=== PATIENT | female | born 1965 | race Caucasian/White ===

== ENCOUNTER 2022-01-28 08:59 | Emergency (ER) | payer BC ==
[2022-01-28 11:25] LABS: Absolute Lymphocytes (CBC) 1.2 K/uL (0.7-4.9); Hematocrit 37.6 % (36.0-45.0); Lymphocytes % 14.6 % (15.3-44.8); RBC Red Blood Cell Count 4.27 M/uL (3.86-4.86)
[2022-01-28 11:30] LABS: Protime INR 1.04
[2022-01-28 11:44] LABS: Albumin 3.3 g/dL (3.4-5.0); Bilirubin Direct 0.2 mg/dL (0-0.2); Bilirubin Total 0.7 mg/dL (0.2-1.0); Magnesium 1.9 mg/dL (1.8-2.4); Potassium 3.3 mmol/L (3.5-5.1); Protein, Total 7.4 g/dL (6.4-8.2); Troponin High Sensitivity 6.7 pg/mL (<58.9)
[2022-01-28] MEDS ORDERED: HYDRALAZINE HCL 10 MG TABLET ONE (12:38)
[2022-01-28] MEDS ORDERED: HYDRALAZINE HCL 20 MG/ML VIAL ONE (12:40)
--- NOTE | 2022-01-28 14:08 | EDPHYS ---
Physician Documentation [facility] Name: Anjali Jones Age: 56 yrs Sex: Female : 1965 Arrival Date: 01/28/2022 Time: 09:01 Bed 13 Private MD: ED Physician Chago Griffin HPI: 01/28 09:59 This 56 yrs old Female presents to ER via Ambulatory with complaints of Dizziness, jmm Headache, High Blood Pressure. 09:59 Onset: The symptoms/episode began/occurred gradually. This is a 56 year old female with jmm a history of htn, sleep apnea, ckd that presents to the ED with complaints of headache, weakness which she attributes to elevated blood pressure. Patient took home hydralazine with no relief. Denies chest pain, denies shortness of breath, denies abdominal pain, denies vomiting. . Historical: - Allergies: 09:49 No Known Allergies; jl7 - PMHx: 09:49 Hypertensive disorder; Sleep apnea; Stage 3 kidney disease; jl7 - PSHx: 09:49 Total abdominal hysterectomy; Cholecystectomy; shoulder; jl7 - Immunization history:: Client reports receiving the 2nd dose of the Covid vaccine. - Social history:: Smoking status: Patient denies any tobacco usage or history of. ROS: 09:59 Cardiovascular: Negative for chest pain, palpitations, and edema, Respiratory: Negative jmm for shortness of breath, cough, wheezing, and pleuritic chest pain. 09:59 Constitutional: Positive for fatigue. 09:59 Neuro: Positive for headache. 09:59 All other systems are negative. Exam: 09:59 Constitutional: This is a well developed, well nourished patient who is awake, alert, jmm and in no acute distress. Head/Face: atraumatic. Eyes: EOMI, no conjunctival erythema appreciated ENT: Moist Mucus Membranes Neck: Trachea midline, Supple Chest/axilla: Normal chest wall appearance and motion. Cardiovascular: Regular rate and rhythm. No edema appreciated Respiratory: Normal respirations, no respiratory distress appreciated Abdomen/GI: Non distended Back: Normal ROM Skin: General appearance color normal MS/ Extremity: Moves all extremities, no obvious deformities appreciated, no edema noted to the lower extremities Neuro: Awake and alert Psych: Behavior is normal, Mood is normal, Patient is cooperative and pleasant Vital Signs: 09:45 BP 176 / 92; Pulse 86; Resp 15; Temp 98; Pulse Ox 96% ; Weight 141.52 kg; Height 5 ft. jl7 7 in. (170.18 cm); Pain 4/10; 12:52 BP 143 / 78; Pulse 70; Resp 13; Pulse Ox 99% on R/A; eh3 14:01 BP 139 / 78; Pulse 65; Resp 15; Pulse Ox 96% on R/A; eh3 14:41 BP 152 / 89; Pulse 72; Resp 16; Pulse Ox 99% on R/A; Pain 3/10; eh3 09:45 Body Mass Index 48.87 (141.52 kg, 170.18 cm) jl7 MDM: 10:00 Patient medically screened. osbaldo 14:04 Data reviewed: vital signs, nurses notes. Counseling: I had a detailed discussion with adrian the patient and/or guardian regarding: the historical points, exam findings, and any diagnostic results supporting the discharge/admit diagnosis, lab results, the need for outpatient follow up, to return to the emergency department if symptoms worsen or persist or if there are any questions or concerns that arise at home. ED course: Patient states feeling much better. Advised to follow up with pcp and otherwise given strict return precautions. Patient understood and agrees with the plan of care. . 01/28 09:59 Order name: Basic Metabolic Panel; Complete Time: 12:21 [facility] 01/28 09:59 Order name: CBC with Diff; Complete Time: 11:31 [facility] 01/28 09:59 Order name: LFT's; Complete Time: 12:21 [facility] 01/28 09:59 Order name: Magnesium; Complete Time: 12:21 [facility] 01/28 09:59 Order name: NT PRO-BNP; Complete Time: 12:21 [facility] 01/28 09:59 Order name: PT-INR; Complete Time: 11:31 [facility] 01/28 09:59 Order name: Troponin HS; Complete Time: 12:21 [facility] 01/28 09:59 Order name: EKG; Complete Time: 10:00 [facility] 01/28 09:59 Order name: Cardiac monitoring; Complete Time: 12:54 [facility] 01/28 09:59 Order name: EKG - Nurse/Tech; Complete Time: 12:54 [facility] 01/28 09:59 Order name: IV Saline Lock; Complete Time: 11:40 [facility] 01/28 09:59 Order name: Labs collected and sent; Complete Time: 11:40 [facility] 01/28 09:59 Order name: O2 Per Protocol; Complete Time: 12:28 [facility] 01/28 09:59 Order name: O2 Sat Monitoring; Complete Time: 12:54 [facility] Administered Medications: 12:50 Drug: hydrALAZINE 5 mg Route: IVP; Site: left antecubital; eh3 14:41 Follow up: Response: No adverse reaction eh3 14:11 CANCELLED (renal diseasee): Ketorolac 30 mg IVP once [facility] 14:39 Drug: NS 0.9% 500 ml Route: IV; Rate: bolus; Site: left antecubital; eh3 15:15 Follow up: Response: No adverse reaction; IV Status: Order to discontinue infusion; IV eh3 Intake: 250ml 14:39 Drug: Reglan (metoCLOPramide) 20 mg Route: IVP; Site: left antecubital; eh3 15:14 Follow up: Response: RASS: Agitated (+2) eh3 14:39 Drug: diphenhydrAMINE 12.5 mg Route: IVP; Site: left antecubital; eh3 15:15 Follow up: Response: Marked relief of symptoms eh3 14:39 Drug: Decadron - Dexamethasone 10 mg Route: IVP; Site: left antecubital; eh3 15:16 Follow up: Response: No adverse reaction; Marked relief of symptoms eh3 15:14 Drug: diphenhydrAMINE 12.5 mg Route: IVP; Site: left antecubital; eh3 15:17 Follow up: Response: No adverse reaction; Marked relief of symptoms eh3 Disposition: 22:37 Co-signature as Attending Physician, Chago BAY was immediately available on-site ms3 in the Emergency Department for consultation in the care of the patient.. Disposition Summary: 01/28/22 14:07 Discharge Ordered Location: Home [facility] Condition: Stable [facility] Diagnosis - Elevated Blood Pressure [facility] Followup: jmm - With: Private Physician - When: 2 - 3 days - Reason: Recheck today's complaints, Continuance of care, Re-evaluation by your physician Discharge Instructions: - Discharge Summary Sheet [facility] - Hypertension, Adult [facility] Forms: - Medication Reconciliation Form adrian - Thank You Letter adrian - Antibiotic Education adrian - Prescription Opioid Use adrian Signatures: Dispatcher [employer] Harpal Borja PA PA jmm Leal, Jahala, RN RN jl7 Chago Griffin DO DO ms3 Bisi Munoz 3 Corrections: (The following items were deleted from the chart) 14:11 14:11 Ketorolac 30 mg IVP once ordered. adrian campbell
--- NOTE | 2022-01-28 14:08 | ER ---
Nurse's Notes [facility] Name: Anjali Jones Age: 56 yrs Sex: Female : 1965 Arrival Date: 01/28/2022 Time: 09:01 Bed 13 Private MD: Diagnosis: Elevated Blood Pressure Presentation: 01/28 09:45 Chief complaint: Patient states: High BP 184/104 this morning, mild pressure headache jl7 and mild dizziness since yesterday. Coronavirus screen: At this time, the client does not indicate any symptoms associated with coronavirus-19. Ebola Screen: No symptoms or risks identified at this time. Initial Sepsis Screen: Does the patient meet any 2 criteria? No. Patient's initial sepsis screen is negative. Does the patient have a suspected source of infection? No. Patient's initial sepsis screen is negative. Risk Assessment: Do you want to hurt yourself or someone else? Patient reports no desire to harm self or others. Onset of symptoms was January 27, 2022. Care prior to arrival: None. 09:45 Method Of Arrival: Ambulatory [facility] 09:45 Acuity: TODD 3 jl7 Triage Assessment: 09:49 Headache History: The patient has had previous headaches and this one is similar to jl7 previous episodes. General: Appears in no apparent distress. uncomfortable, Behavior is calm, cooperative, appropriate for age. Pain: Complains of pain in [place] Pain currently is 4 out of 10 on a pain scale. Pain began 1 day ago. Also complains of no other associated symptoms. Neuro: Level of Consciousness is awake, alert, obeys commands, Oriented to person, place, time, situation. Historical: - Allergies: 09:49 No Known Allergies; jl7 - PMHx: 09:49 Hypertensive disorder; Sleep apnea; Stage 3 kidney disease; jl7 - PSHx: 09:49 Total abdominal hysterectomy; Cholecystectomy; shoulder; jl7 - Immunization history:: Client reports receiving the 2nd dose of the Covid vaccine. - Social history:: Smoking status: Patient denies any tobacco usage or history of. Screenin:53 Abuse screen: Denies threats or abuse. Denies injuries from another. Nutritional eh3 screening: No deficits noted. Tuberculosis screening: No symptoms or risk factors identified. Fall Risk None identified. Assessment: 12:53 Reassessment: No changes from previously documented assessment. Pain: Complains of pain eh3 in forehead, right restorationist and left restorationist. Vital Signs: 09:45 BP 176 / 92; Pulse 86; Resp 15; Temp 98; Pulse Ox 96% ; Weight 141.52 kg; Height 5 ft. jl7 7 in. (170.18 cm); Pain 4/10; 12:52 BP 143 / 78; Pulse 70; Resp 13; Pulse Ox 99% on R/A; eh3 14:01 BP 139 / 78; Pulse 65; Resp 15; Pulse Ox 96% on R/A; eh3 14:41 BP 152 / 89; Pulse 72; Resp 16; Pulse Ox 99% on R/A; Pain 3/10; eh3 09:45 Body Mass Index 48.87 (141.52 kg, 170.18 cm) 7 ED Course: 09:01 Patient arrived in ED. mr 09:20 Harpal Dorsey PA is PHCP. [facility] 09:20 Chago Griffin DO is Attending Physician. [facility] 09:49 Triage completed. [facility] 09:49 Arm band placed on right wrist. jl7 11:39 Inserted saline lock: 20 gauge in left antecubital area, using aseptic technique. Blood zm collected. 11:40 Basic Metabolic Panel Sent. zm 11:41 LFT's Sent. zm 11:41 Magnesium Sent. zm 11:41 NT PRO-BNP Sent. zm 11:41 Troponin HS Sent. zm 12:26 Catrina Pandey, RN is Primary Nurse. ld1 12:53 Patient has correct armband on for positive identification. Bed in low position. Call eh3 light in reach. Side rails up X2. 13:00 Door closed. Noise minimized. Lights dimmed. Warm blanket given. Head of bed lowered. eh3 14:01 Primary Nurse role handed off by Catrina Pandey, RN eh3 14:01 Bisi Munoz is Primary Nurse. eh3 14:41 No provider procedures requiring assistance completed. eh3 15:18 IV discontinued, intact, bleeding controlled, No redness/swelling at site. Pressure eh3 dressing applied. Administered Medications: 12:50 Drug: hydrALAZINE 5 mg Route: IVP; Site: left antecubital; eh3 14:41 Follow up: Response: No adverse reaction eh3 14:11 CANCELLED (renal diseasee): Ketorolac 30 mg IVP once [facility] 14:39 Drug: NS 0.9% 500 ml Route: IV; Rate: bolus; Site: left antecubital; eh3 15:15 Follow up: Response: No adverse reaction; IV Status: Order to discontinue infusion; IV eh3 Intake: 250ml 14:39 Drug: Reglan (metoCLOPramide) 20 mg Route: IVP; Site: left antecubital; eh3 15:14 Follow up: Response: RASS: Agitated (+2) eh3 14:39 Drug: diphenhydrAMINE 12.5 mg Route: IVP; Site: left antecubital; eh3 15:15 Follow up: Response: Marked relief of symptoms 3 14:39 Drug: Decadron - Dexamethasone 10 mg Route: IVP; Site: left antecubital; eh3 15:16 Follow up: Response: No adverse reaction; Marked relief of symptoms eh3 15:14 Drug: diphenhydrAMINE 12.5 mg Route: IVP; Site: left antecubital; eh3 15:17 Follow up: Response: No adverse reaction; Marked relief of symptoms eh3 Medication: 14:41 VIS not applicable for this client. eh3 Intake: 15:15 IV: 250ml; Total: 250ml. 3 Outcome: 14:07 Discharge ordered by . [facility] 15:17 Discharged to home ambulatory, with significant other. 3 15:17 Condition: stable 15:17 Discharge instructions given to patient, Instructed on discharge instructions, follow up and referral plans. Demonstrated understanding of instructions, follow-up care. 15:26 Patient left the ED. 3 Signatures: Harpal Dorsey PA PA [facility] Sukumar Theresa mr LopesBarron RN RN jl7 Catrina Pandey RN RN ld1 Bisi Munoz 3 Elaine Shook
[2022-01-28] MEDS ORDERED: NA CHLORIDE 0.9% 500 ML ONE (14:23)
[2022-01-28] MEDS ORDERED: dexAMETHasone 10 MG/ML VIAL ONE (14:23)
[2022-01-28] MEDS ORDERED: METOCLOPRAMIDE 10 MG/2mL INJ ONE (14:23)
[2022-01-28] MEDS ORDERED: DIPHENHYDRAMINE 12.5MG/5ML LIQ ONE (14:24)
[2022-01-28] MEDS ORDERED: DIPHENHYDRAMINE 50 MG/ML VIAL ONE ×2 (14:26→15:13)
[2022-01-28 16:01] VITALS: TEMP 98
[2022-01-28 16:11] VITALS: BP 152/89; O2SAT 99
--- NOTE | 2022-01-29 07:23 | EKG ---
Test Date: 2022-01-28 Test Time: 12:41:51 Clam Dredger: SALTY MEASUREMENT RESULTS: Intervals: Rate: 61 MD: 176 QRSD: 84 QT: 422 QTc: 424 [place]: P: 63 MD: 176 QRS: 11 T: 54 INTERPRETIVE STATEMENTS: Normal sinus rhythm Normal ECG No previous ECG available for comparison Electronically Signed On 01-29-22 07:20:40 CDT by Naif Davies
--- NOTE | 2022-01-29 07:23 | EKG ---
Test Date: 2022-01-28 Test Time: 12:42:18 Plastic Tubing Insulation Supervisor: SALTY MEASUREMENT RESULTS: Intervals: Rate: 69 AR: 184 QRSD: 86 QT: 426 QTc: 456 [place]: P: 61 AR: 184 QRS: 10 T: 51 INTERPRETIVE STATEMENTS: Normal sinus rhythm Normal ECG Compared to ECG 01/28/2022 12:41:51 No significant changes Electronically Signed On 01-29-22 07:20:39 CDT by Naif Davies
--- OUTSIDE RECORDS SUMMARY | 2022-01-30 14:09 | XMS REPORT | Continuity of Care Document ---
:1965 Author Organization [facility] t Address [address] [place] [address] [address] [place] [address] Care Team Providers Name Role Phone SITA Attending Clinician Unavailable TRENT BUCKNER Attending Clinician Unavailable KWESI Attending Clinician Unavailable MD NARDA OROSCO Attending Clinician Unavailable Justine Attending Clinician Unavailable DR ANGELA Attending Clinician Unavailable KWESI Admitting Clinician Unavailable MD NARDA OROSCO Admitting Clinician Unavailable Justine Admitting Clinician Unavailable DR ANGELA Admitting Clinician Unavailable Payers Payer Name Policy Type Policy Number Effective Date Expiration Date S ource BCBS PPO POS EPO [id number] 2017 00:00:00 [id number] 2017 00:00[place]00 [place] Problems This patient has no known problems. Allergies, Adverse Reactions, Alerts Allergy Allergy Status Severity Reaction(s) Onset Inactive Treating Comm ents Source Name Type Date Date Clinician NO KNOWN Allergy Active [facility] ALLERGIE S Medications This patient has no known medications. Vital Signs Vital Name Observation Time Observation Value Comments Source WEIGHT 2021-09-10 09:00:00 137.893 kg WEIGHT 2021-09-10 09:00:00 137.893 kg WEIGHT 2021-06-17 08:41:00 134.31 kg WEIGHT 2021-06-17 08:41:00 134.31 kg Procedures This patient has no known procedures. Encounters Start End Encounter Admission Attending Care Care Encounter Source Date/Time Date/Time Type Type Clinicians Facility Department ID 2021-11-04 2021-11-04 Outpatient GILBERTO BUCKNER [facility] [id number] [place] 00:00:00 00:00:00 [place] [address] 2021-09-11 2021-09-12 Outpatient EL [facility] [id number] [facility] 11:42:22 08:27:48 2021-09-11 2021-09-11 Outpatient [facility] [id number] [facility] 00:00:00 00:00:00 2021-09-11 2021-09-11 Outpatient EL [facility] [id number] [facility] 00:00:00 00:00:00 2021-09-10 2021-09-10 Outpatient EL [facility] [id number] [facility] 08:35:27 16:06:47 2021-08-14 2021-08-14 Outpatient EL [facility] [id number] [facility] 08:35:47 14:24:41 2021-08-13 2021-08-13 Outpatient EL [facility] [id number] [facility] 07:51:26 15:41:57 2021-07-16 2021-07-16 Outpatient EL [facility] [id number] [facility] 08:26:42 14:42:37 2021-07-15 2021-07-15 Outpatient EL [facility] [id number] [facility] 08:21:56 16:52:30 2021-06-18 2021-06-18 Outpatient EL [facility] [id number] [facility] 08:06:29 15:32:54 2021-06-17 2021-06-17 Outpatient EL [facility] [id number] [facility] 08:35:30 14:45:05 2021-05-21 2021-05-21 Outpatient EL [facility] [id number] [facility] 08:38:09 15:52:18 2021-05-20 2021-05-21 Outpatient EL [facility] [id number] [facility] 08:25:44 07:25:18 2021-04-23 2021-04-24 Outpatient EL [facility] [id number] [facility] 08:33:54 08:32:43 2021-04-22 2021-04-22 Outpatient EL [facility] [id number] [facility] 09:07:33 14:51:55 2021-04-18 2021-04-18 Outpatient LARY BUCKNERH [facility] [id number] [place] 00:00:00 00:00:00 ROSELYN 630 [address] i 2021-03-25 2021-03-28 Inpatient KWESI [facility] [id number] [place] 00:00:00 00:00:00 ELIZABETH 684 [address] i 2021-03-14 2021-03-14 Outpatient SITA [facility] [id number] [place] 00:00:00 00:00:00 ROSELYN 491 [address] i 2020-12-31 2020-12-31 Outpatient Justine [facility] [id number] [place] 02:38:00 02:38:00 [id number] [facility] 2018-02-25 2018-02-25 Outpatient Syd [facility] [id number] 08:19:00 13:00:00 [facility] Results Test Description Test Time Test Comments Results Result Comments Source COMPREHENSIVE METABOLIC PANEL 2021-09-10 10:47:51 Test Item Value Reference Range Interpretation Comme nts TOTAL PROTEIN (BEAKER) 6.8 gm/dL 6.0-8.3 Speci men slightly (test code = 770) hemolyzed ALBUMIN (BEAKER) (test code 4.8 g/dL 3.5-5.0 Specimen slightly = 1145) hemolyzed ALKALINE PHOSPHATASE 56 U/L 40-150 (BEAKER) (test code = 346) BILIRUBIN TOTAL (BEAKER) 0.8 mg/dL 0.2-1.2 Spe cimen slightly (test code = 377) hemolyzed SODIUM (BEAKER) (test code 140 meq/L 136-145 = 381) POTASSIUM (BEAKER) (test 4.1 meq/L 3.5-5.1 Spe cimen slightly code = 379) hemolyzed CHLORIDE (BEAKER) (test 104 meq/L 98-107 code = 382) CO2 (BEAKER) (test code = 32 meq/L 22-29 H 355) BLOOD UREA NITROGEN 37 mg/dL 7-21 H (BEAKER) (test code = 354) CREATININE (BEAKER) (test 1.48 mg/dL 0.57-1.25 H Sp ecimen slightly code = 358) hemolyzed GLUCOSE RANDOM (BEAKER) 164 mg/dL 70-105 H (test code = 652) CALCIUM (BEAKER) (test code 10.8 mg/dL 8.4-10.2 H = 697) AST (SGOT) (BEAKER) (test 23 U/L 5-34 Sp ecimen slightly code = 353) hemolyzed ALT (SGPT) (BEAKER) (test 32 U/L 6-55 Sp ecimen slightly code = 347) hemolyzed EGFR (BEAKER) (test code = 36 mL/min/1.73 sq m ESTIMATED GFR IS NOT 1092) ACCURATE CRE ATININE CLEARANCE IN TN EDICTING GLOMERULAR FILT RATION RATE. ESTIMATED GFR IS NOT APPLICABLE FOR DIALYSIS PATIENTS. CBC W/PLT COUNT & AUTO [id number] 10:31:06 Test Item Value Reference Range Interpretation Comments WHITE BLOOD CELL COUNT (BEAKER) 11.6 K/ L 3.5-10.5 H (test code = 775) RED BLOOD CELL COUNT (BEAKER) 3.94 M/ L 3.93-5.22 (test code = 761) HEMOGLOBIN (BEAKER) (test code = 12.3 GM/DL 11.2-15.7 410) HEMATOCRIT (BEAKER) (test code = 38.8 % 34.1-44.9 411) MEAN CORPUSCULAR VOLUME (BEAKER) 98.5 fL 79.4-94.8 H (test code = 753) MEAN CORPUSCULAR HEMOGLOBIN 31.2 pg 25.6-32.2 (BEAKER) (test code = 751) MEAN CORPUSCULAR HEMOGLOBIN CONC 31.7 GM/DL 32.2-35.5 L (BEAKER) (test code = 752) RED CELL DISTRIBUTION WIDTH 15.3 % 11.7-14.4 H (BEAKER) (test code = 412) PLATELET COUNT (BEAKER) (test 200 K/CU MM 150-450 code = 756) MEAN PLATELET VOLUME (BEAKER) 11.0 fL 9.0-12.3 (test code = 754) NEUTROPHILS RELATIVE PERCENT 78 % (BEAKER) (test code = 429) LYMPHOCYTES RELATIVE PERCENT 12 % (BEAKER) (test code = 430) MONOCYTES RELATIVE PERCENT 7 % (BEAKER) (test code = 431) EOSINOPHILS RELATIVE PERCENT 1 % (BEAKER) (test code = 432) BASOPHILS RELATIVE PERCENT 0 % (BEAKER) (test code = 437) NEUTROPHILS ABSOLUTE COUNT 9.07 K/ L 1.56-6.13 H (BEAKER) (test code = 670) LYMPHOCYTES ABSOLUTE COUNT 1.41 K/ L 1.18-3.74 (BEAKER) (test code = 414) MONOCYTES ABSOLUTE COUNT (BEAKER) 0.81 K/ L 0.24-0.36 H (test code = 415) EOSINOPHILS ABSOLUTE COUNT 0.16 K/ L 0.04-0.36 (BEAKER) (test code = 416) BASOPHILS ABSOLUTE COUNT (BEAKER) 0.05 K/ L 0.01-0.08 (test code = 417) IMMATURE GRANULOCYTES-RELATIVE 1 % 0-1 PERCENT (BEAKER) (test code = 2801) COMPREHENSIVE METABOLIC [id number] 10:51:17 Test Item Value Reference Range Interpretation Comments TOTAL PROTEIN 6.2 gm/dL 6.0-8.3 Specimen sligh tly (BEAKER) (test code = hemoly zed 770) ALBUMIN (BEAKER) 4.4 g/dL 3.5-5.0 Specimen sl ightly (test code = 1145) hemolyzed ALKALINE PHOSPHATASE 37 U/L 40-150 L (BEAKER) (test code = 346) BILIRUBIN TOTAL 0.8 mg/dL 0.2-1.2 Specimen sli ghtly (BEAKER) (test code = hemoly zed 377) SODIUM (BEAKER) (test 142 meq/L 136-145 code = 381) POTASSIUM (BEAKER) 4.8 meq/L 3.5-5.1 Specimen slightly (test code = 379) hemolyzed CHLORIDE (BEAKER) 111 meq/L 98-107 H (test code = 382) CO2 (BEAKER) (test 29 meq/L 22-29 code = 355) BLOOD UREA NITROGEN 30 mg/dL 7-21 H (BEAKER) (test code = 354) CREATININE (BEAKER) 1.34 mg/dL 0.57-1.25 H Specimen slightly (test code = 358) hemolyzed GLUCOSE RANDOM 102 mg/dL 70-105 (BEAKER) (test code = 652) CALCIUM (BEAKER) 10.2 mg/dL 8.4-10.2 (test code = 697) AST (SGOT) (BEAKER) 19 U/L 5-34 Specimen slightly (test code = 353) hemolyzed ALT (SGPT) (BEAKER) 32 U/L 6-55 Specimen slightly (test code = 347) hemolyzed EGFR (BEAKER) (test 41 mL/min/1.73 ESTIMA DAVID GFR IS code = 1092) sq m NOT ACCURATE CREATININE CLEARANCE IN PREDICTING GLOMERULAR FILTRATION RATE . ESTIMATED GFR I S NOT APPLICABLE FOR DIALYSIS PATIEN TS. CBC W/PLT COUNT & AUTO [id number] 10:41:36 Test Item Value Reference Range Interpretation Comments WHITE BLOOD CELL COUNT (BEAKER) 9.7 K/ L 3.5-10.5 (test code = 775) RED BLOOD CELL COUNT (BEAKER) 3.35 M/ L 3.93-5.22 L (test code = 761) HEMOGLOBIN (BEAKER) (test code = 10.7 GM/DL 11.2-15.7 L 410) HEMATOCRIT (BEAKER) (test code = 33.7 % 34.1-44.9 L 411) MEAN CORPUSCULAR VOLUME (BEAKER) 100.6 fL 79.4-94.8 H (test code = 753) MEAN CORPUSCULAR HEMOGLOBIN 31.9 pg 25.6-32.2 (BEAKER) (test code = 751) MEAN CORPUSCULAR HEMOGLOBIN CONC 31.8 GM/DL 32.2-35.5 L (BEAKER) (test code = 752) RED CELL DISTRIBUTION WIDTH 15.2 % 11.7-14.4 H (BEAKER) (test code = 412) PLATELET COUNT (BEAKER) (test 147 K/CU MM 150-450 L code = 756) MEAN PLATELET VOLUME (BEAKER) 11.0 fL 9.0-12.3 (test code = 754) NEUTROPHILS RELATIVE PERCENT 78 % (BEAKER) (test code = 429) LYMPHOCYTES RELATIVE PERCENT 12 % (BEAKER) (test code = 430) MONOCYTES RELATIVE PERCENT 8 % (BEAKER) (test code = 431) EOSINOPHILS RELATIVE PERCENT 1 % (BEAKER) (test code = 432) BASOPHILS RELATIVE PERCENT 0 % (BEAKER) (test code = 437) NEUTROPHILS ABSOLUTE COUNT 7.57 K/ L 1.56-6.13 H (BEAKER) (test code = 670) LYMPHOCYTES ABSOLUTE COUNT 1.16 K/ L 1.18-3.74 L (BEAKER) (test code = 414) MONOCYTES ABSOLUTE COUNT (BEAKER) 0.73 K/ L 0.24-0.36 H (test code = 415) EOSINOPHILS ABSOLUTE COUNT 0.13 K/ L 0.04-0.36 (BEAKER) (test code = 416) BASOPHILS ABSOLUTE COUNT (BEAKER) 0.03 K/ L 0.01-0.08 (test code = 417) IMMATURE GRANULOCYTES-RELATIVE 1 % 0-1 PERCENT (BEAKER) (test code = 2801) COMPREHENSIVE METABOLIC [id number] 11:14:44 Test Item Value Reference Range Interpretation Comments TOTAL PROTEIN 6.4 gm/dL 6.0-8.3 (BEAKER) (test code = 770) ALBUMIN (BEAKER) 4.4 g/dL 3.5-5.0 (test code = 1145) ALKALINE PHOSPHATASE 49 U/L 40-150 (BEAKER) (test code = 346) BILIRUBIN TOTAL 0.8 mg/dL 0.2-1.2 (BEAKER) (test code = 377) SODIUM (BEAKER) (test 143 meq/L 136-145 code = 381) POTASSIUM (BEAKER) 4.2 meq/L 3.5-5.1 (test code = 379) CHLORIDE (BEAKER) 109 meq/L 98-107 H (test code = 382) CO2 (BEAKER) (test 29 meq/L 22-29 code = 355) BLOOD UREA NITROGEN 36 mg/dL 7-21 H (BEAKER) (test code = 354) CREATININE (BEAKER) 1.37 mg/dL 0.57-1.25 H (test code = 358) GLUCOSE RANDOM 98 mg/dL 70-105 (BEAKER) (test code = 652) CALCIUM (BEAKER) 9.7 mg/dL 8.4-10.2 (test code = 697) AST (SGOT) (BEAKER) 17 U/L 5-34 (test code = 353) ALT (SGPT) (BEAKER) 31 U/L 6-55 (test code = 347) EGFR (BEAKER) (test 40 mL/min/1.73 ESTIMA DAVID GFR IS code = 1092) sq m NOT ACCURATE CREATININE CLEARANCE IN PREDICTING GLOMERULAR FILTRATION RATE . ESTIMATED GFR I S NOT APPLICABLE FOR DIALYSIS PATIEN TS. CBC W/PLT COUNT & AUTO [id number] 10:57:44 Test Item Value Reference Range Interpretation Comments WHITE BLOOD CELL COUNT (BEAKER) 8.7 K/ L 3.5-10.5 (test code = 775) RED BLOOD CELL COUNT (BEAKER) 3.37 M/ L 3.93-5.22 L (test code = 761) HEMOGLOBIN (BEAKER) (test code = 10.8 GM/DL 11.2-15.7 L 410) HEMATOCRIT (BEAKER) (test code = 34.3 % 34.1-44.9 411) MEAN CORPUSCULAR VOLUME (BEAKER) 101.8 fL 79.4-94.8 H (test code = 753) MEAN CORPUSCULAR HEMOGLOBIN 32.0 pg 25.6-32.2 (BEAKER) (test code = 751) MEAN CORPUSCULAR HEMOGLOBIN CONC 31.5 GM/DL 32.2-35.5 L (BEAKER) (test code = 752) RED CELL DISTRIBUTION WIDTH 16.7 % 11.7-14.4 H (BEAKER) (test code = 412) PLATELET COUNT (BEAKER) (test 161 K/CU MM 150-450 code = 756) MEAN PLATELET VOLUME (BEAKER) 10.8 fL 9.4-12.3 (test code = 754) NEUTROPHILS RELATIVE PERCENT 77 % (BEAKER) (test code = 429) LYMPHOCYTES RELATIVE PERCENT 12 % (BEAKER) (test code = 430) MONOCYTES RELATIVE PERCENT 8 % (BEAKER) (test code = 431) EOSINOPHILS RELATIVE PERCENT 2 % (BEAKER) (test code = 432) BASOPHILS RELATIVE PERCENT 0 % (BEAKER) (test code = 437) NEUTROPHILS ABSOLUTE COUNT 6.74 K/ L 1.56-6.13 H (BEAKER) (test code = 670) LYMPHOCYTES ABSOLUTE COUNT 1.08 K/ L 1.18-3.74 L (BEAKER) (test code = 414) MONOCYTES ABSOLUTE COUNT (BEAKER) 0.69 K/ L 0.24-0.36 H (test code = 415) EOSINOPHILS ABSOLUTE COUNT 0.13 K/ L 0.04-0.36 (BEAKER) (test code = 416) BASOPHILS ABSOLUTE COUNT (BEAKER) 0.03 K/ L 0.01-0.08 (test code = 417) IMMATURE GRANULOCYTES-RELATIVE 1 % 0-1 PERCENT (BEAKER) (test code = 2801) CBC W/PLT COUNT & AUTO [id number] 12:41:43 Test Item Value Reference Range Interpretation Comments WHITE BLOOD CELL COUNT (BEAKER) 7.8 K/ L 3.5-10.5 (test code = 775) RED BLOOD CELL COUNT (BEAKER) 3.05 M/ L 3.93-5.22 L (test code = 761) HEMOGLOBIN (BEAKER) (test code = 9.5 GM/DL 11.2-15.7 L 410) HEMATOCRIT (BEAKER) (test code = 29.3 % 34.1-44.9 L 411) MEAN CORPUSCULAR VOLUME (BEAKER) 96.1 fL 79.4-94.8 H (test code = 753) MEAN CORPUSCULAR HEMOGLOBIN 31.1 pg 25.6-32.2 (BEAKER) (test code = 751) MEAN CORPUSCULAR HEMOGLOBIN CONC 32.4 GM/DL 32.2-35.5 (BEAKER) (test code = 752) RED CELL DISTRIBUTION WIDTH 16.7 % 11.7-14.4 H (BEAKER) (test code = 412) PLATELET COUNT (BEAKER) (test 159 K/CU MM 150-450 code = 756) MEAN PLATELET VOLUME (BEAKER) 11.0 fL 9.4-12.3 (test code = 754) NEUTROPHILS RELATIVE PERCENT 73 % (BEAKER) (test code = 429) LYMPHOCYTES RELATIVE PERCENT 16 % (BEAKER) (test code = 430) MONOCYTES RELATIVE PERCENT 9 % (BEAKER) (test code = 431) EOSINOPHILS RELATIVE PERCENT 1 % (BEAKER) (test code = 432) BASOPHILS RELATIVE PERCENT 0 % (BEAKER) (test code = 437) NEUTROPHILS ABSOLUTE COUNT 5.76 K/ L 1.56-6.13 (BEAKER) (test code = 670) LYMPHOCYTES ABSOLUTE COUNT 1.26 K/ L 1.18-3.74 (BEAKER) (test code = 414) MONOCYTES ABSOLUTE COUNT (BEAKER) 0.68 K/ L 0.24-0.36 H (test code = 415) EOSINOPHILS ABSOLUTE COUNT 0.08 K/ L 0.04-0.36 (BEAKER) (test code = 416) BASOPHILS ABSOLUTE COUNT (BEAKER) 0.02 K/ L 0.01-0.08 (test code = 417) IMMATURE GRANULOCYTES-RELATIVE 1 % 0-1 PERCENT (BEAKER) (test code = 2801) COMPREHENSIVE METABOLIC [id number] 12:35:24 Test Item Value Reference Range Interpretation Comments TOTAL PROTEIN 6.4 gm/dL 6.0-8.3 Specimen sligh tly (BEAKER) (test code = hemoly zed 770) ALBUMIN (BEAKER) 4.3 g/dL 3.5-5.0 Specimen sl ightly (test code = 1145) hemolyzed ALKALINE PHOSPHATASE 33 U/L 40-150 L (BEAKER) (test code = 346) BILIRUBIN TOTAL 1.2 mg/dL 0.2-1.2 Specimen sli ghtly (BEAKER) (test code = hemoly zed 377) SODIUM (BEAKER) (test 138 meq/L 136-145 code = 381) POTASSIUM (BEAKER) 4.6 meq/L 3.5-5.1 Specimen slightly (test code = 379) hemolyzed CHLORIDE (BEAKER) 105 meq/L 98-107 (test code = 382) CO2 (BEAKER) (test 25 meq/L 22-29 code = 355) BLOOD UREA NITROGEN 50 mg/dL 7-21 H (BEAKER) (test code = 354) CREATININE (BEAKER) 1.81 mg/dL 0.57-1.25 H Specimen slightly (test code = 358) hemolyzed GLUCOSE RANDOM 88 mg/dL 70-105 (BEAKER) (test code = 652) CALCIUM (BEAKER) 9.9 mg/dL 8.4-10.2 (test code = 697) AST (SGOT) (BEAKER) 16 U/L 5-34 Specimen slightly (test code = 353) hemolyzed ALT (SGPT) (BEAKER) 33 U/L 6-55 Specimen slightly (test code = 347) hemolyzed EGFR (BEAKER) (test 29 mL/min/1.73 ESTIMA DAVID GFR IS code = 1092) sq m NOT ACCURATE CREATININE CLEARANCE IN PREDICTING GLOMERULAR FILTRATION RATE . ESTIMATED GFR I S NOT APPLICABLE FOR DIALYSIS PATIEN TS. COMPREHENSIVE METABOLIC [id number] 11:39:42 Test Item Value Reference Range Interpretation Comments TOTAL PROTEIN 6.6 gm/dL 6.0-8.3 Specimen sligh tly (BEAKER) (test code = hemoly zed 770) ALBUMIN (BEAKER) 4.5 g/dL 3.5-5.0 Specimen sl ightly (test code = 1145) hemolyzed ALKALINE PHOSPHATASE 44 U/L 40-150 (BEAKER) (test code = 346) BILIRUBIN TOTAL 1.1 mg/dL 0.2-1.2 Specimen sli ghtly (BEAKER) (test code = hemoly zed 377) SODIUM (BEAKER) (test 140 meq/L 136-145 code = 381) POTASSIUM (BEAKER) 5.4 meq/L 3.5-5.1 H Specimen slightly (test code = 379) hemolyzed CHLORIDE (BEAKER) 104 meq/L 98-107 (test code = 382) CO2 (BEAKER) (test 30 meq/L 22-29 H code = 355) BLOOD UREA NITROGEN 55 mg/dL 7-21 H (BEAKER) (test code = 354) CREATININE (BEAKER) 2.08 mg/dL 0.57-1.25 H Specimen slightly (test code = 358) hemolyzed GLUCOSE RANDOM 95 mg/dL 70-105 (BEAKER) (test code = 652) CALCIUM (BEAKER) 10.5 mg/dL 8.4-10.2 H (test code = 697) AST (SGOT) (BEAKER) 19 U/L 5-34 Specimen slightly (test code = 353) hemolyzed ALT (SGPT) (BEAKER) 36 U/L 6-55 Specimen slightly (test code = 347) hemolyzed EGFR (BEAKER) (test INSUFFIC IENT CLINICAL code = 1092) DATA TO CALCULA TE ESTIMATED GFR. CBC W/PLT COUNT & AUTO [id number] 11:35:19 Test Item Value Reference Range Interpretation Comments WHITE BLOOD CELL COUNT (BEAKER) 8.9 K/ L 3.5-10.5 (test code = 775) RED BLOOD CELL COUNT (BEAKER) 3.21 M/ L 3.93-5.22 L (test code = 761) HEMOGLOBIN (BEAKER) (test code = 9.9 GM/DL 11.2-15.7 L 410) HEMATOCRIT (BEAKER) (test code = 30.7 % 34.1-44.9 L 411) MEAN CORPUSCULAR VOLUME (BEAKER) 95.6 fL 79.4-94.8 H (test code = 753) MEAN CORPUSCULAR HEMOGLOBIN 30.8 pg 25.6-32.2 (BEAKER) (test code = 751) MEAN CORPUSCULAR HEMOGLOBIN CONC 32.2 GM/DL 32.2-35.5 (BEAKER) (test code = 752) RED CELL DISTRIBUTION WIDTH 14.5 % 11.7-14.4 H (BEAKER) (test code = 412) PLATELET COUNT (BEAKER) (test 145 K/CU MM 150-450 L code = 756) MEAN PLATELET VOLUME (BEAKER) 10.7 fL 9.4-12.3 (test code = 754) NEUTROPHILS RELATIVE PERCENT 80 % (BEAKER) (test code = 429) LYMPHOCYTES RELATIVE PERCENT 10 % (BEAKER) (test code = 430) MONOCYTES RELATIVE PERCENT 8 % (BEAKER) (test code = 431) EOSINOPHILS RELATIVE PERCENT 1 % (BEAKER) (test code = 432) BASOPHILS RELATIVE PERCENT 0 % (BEAKER) (test code = 437) NEUTROPHILS ABSOLUTE COUNT 7.11 K/ L 1.56-6.13 H (BEAKER) (test code = 670) LYMPHOCYTES ABSOLUTE COUNT 0.92 K/ L 1.18-3.74 L (BEAKER) (test code = 414) MONOCYTES ABSOLUTE COUNT (BEAKER) 0.69 K/ L 0.24-0.36 H (test code = 415) EOSINOPHILS ABSOLUTE COUNT 0.11 K/ L 0.04-0.36 (BEAKER) (test code = 416) BASOPHILS ABSOLUTE COUNT (BEAKER) 0.03 K/ L 0.01-0.08 (test code = 417) IMMATURE GRANULOCYTES-RELATIVE 0 % 0-1 PERCENT (BEAKER) (test code = 2801) COMPREHENSIVE METABOLIC [id number] 11:19:56 Test Item Value Reference Range Interpretation Comments TOTAL PROTEIN 5.9 gm/dL 6.0-8.3 L Specimen sligh tly (BEAKER) (test code = hemoly zed 770) ALBUMIN (BEAKER) 4.4 g/dL 3.5-5.0 Specimen sl ightly (test code = 1145) hemolyzed ALKALINE PHOSPHATASE 36 U/L 40-150 L (BEAKER) (test code = 346) BILIRUBIN TOTAL 1.2 mg/dL 0.2-1.2 Specimen sli ghtly (BEAKER) (test code = hemoly zed 377) SODIUM (BEAKER) (test 141 meq/L 136-145 code = 381) POTASSIUM (BEAKER) 5.1 meq/L 3.5-5.1 Specimen slightly (test code = 379) hemolyzed CHLORIDE (BEAKER) 106 meq/L 98-107 (test code = 382) CO2 (BEAKER) (test 28 meq/L 22-29 code = 355) BLOOD UREA NITROGEN 61 mg/dL 7-21 H (BEAKER) (test code = 354) CREATININE (BEAKER) 2.29 mg/dL 0.57-1.25 H Specimen slightly (test code = 358) hemolyzed GLUCOSE RANDOM 93 mg/dL 70-105 (BEAKER) (test code = 652) CALCIUM (BEAKER) 10.9 mg/dL 8.4-10.2 H (test code = 697) AST (SGOT) (BEAKER) 17 U/L 5-34 Specimen slightly (test code = 353) hemolyzed ALT (SGPT) (BEAKER) 28 U/L 6-55 Specimen slightly (test code = 347) hemolyzed EGFR (BEAKER) (test INSUFFIC IENT CLINICAL code = 1092) DATA TO CALCULA TE ESTIMATED GFR. CBC W/PLT COUNT & AUTO [id number] 11:04:45 Test Item Value Reference Range Interpretation Comments WHITE BLOOD CELL COUNT (BEAKER) 7.5 K/ L 3.5-10.5 (test code = 775) RED BLOOD CELL COUNT (BEAKER) 3.60 M/ L 3.93-5.22 L (test code = 761) HEMOGLOBIN (BEAKER) (test code = 10.8 GM/DL 11.2-15.7 L 410) HEMATOCRIT (BEAKER) (test code = 34.0 % 34.1-44.9 L 411) MEAN CORPUSCULAR VOLUME (BEAKER) 94.4 fL 79.4-94.8 (test code = 753) MEAN CORPUSCULAR HEMOGLOBIN 30.0 pg 25.6-32.2 (BEAKER) (test code = 751) MEAN CORPUSCULAR HEMOGLOBIN CONC 31.8 GM/DL 32.2-35.5 L (BEAKER) (test code = 752) RED CELL DISTRIBUTION WIDTH 13.1 % 11.7-14.4 (BEAKER) (test code = 412) PLATELET COUNT (BEAKER) (test 136 K/CU MM 150-450 L code = 756) MEAN PLATELET VOLUME (BEAKER) 10.6 fL 9.0-12.3 (test code = 754) NEUTROPHILS RELATIVE PERCENT 66 % (BEAKER) (test code = 429) LYMPHOCYTES RELATIVE PERCENT 24 % (BEAKER) (test code = 430) MONOCYTES RELATIVE PERCENT 8 % (BEAKER) (test code = 431) EOSINOPHILS RELATIVE PERCENT 2 % (BEAKER) (test code = 432) BASOPHILS RELATIVE PERCENT 0 % (BEAKER) (test code = 437) NEUTROPHILS ABSOLUTE COUNT 4.98 K/ L 1.56-6.13 (BEAKER) (test code = 670) LYMPHOCYTES ABSOLUTE COUNT 1.79 K/ L 1.18-3.74 (BEAKER) (test code = 414) MONOCYTES ABSOLUTE COUNT (BEAKER) 0.56 K/ L 0.24-0.36 H (test code = 415) EOSINOPHILS ABSOLUTE COUNT 0.15 K/ L 0.04-0.36 (BEAKER) (test code = 416) BASOPHILS ABSOLUTE COUNT (BEAKER) 0.02 K/ L 0.01-0.08 (test code = 417) IMMATURE GRANULOCYTES-RELATIVE 0 % 0-1 PERCENT (BEAKER) (test code = 2801) SARS-CoV-2 (COVID-19) RNA [Presence] in Respiratory specimen by ZEE with probe [id number] 22:08:57 Test Item Value Reference Range Interpretation Comments SARS-CoV-2 (COVID-19) RNA Not detected Not-Detected [Presence] in Respiratory specimen by ZEE with probe detection (test code = 31524-8) 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 (test code = 56995-1) Whether the patient has symptoms related to condition of interest (test code = 61499-2) Patient was hospitalized because of this condition (test code = 59487-7) Whether the patient was admitted to intensive care unit (ICU) for condition of interest (test code = 56905-8) Whether patient resides in a congregate care setting (test code = 27835-0) GLUCOMETER GLUCOSE- LAB USE [id number] 13:05:00 Test Item Value Reference Range Interpretation Comments GLUCOMETER (test code = GMG) 135 mg/dL 70-100 H GLUCOMETER GLUCOSE- LAB USE [id number] 13:05:00 Test Item Value Reference Range Interpretation Comments GLUCOMETER (test code = GMG) 107 mg/dL 70-100 H
== END 2022-01-28 15:26 | disposition home or self-care (01) ==
LOC: ER 08:59
DX: I12.9 Hypertensive chronic kidney disease with stage 1 through stage 4 chronic kidney disease, or unspecified chronic kidney disease (principal)
CPT/HCPCS: 96361; 93005 ×2; 85025; 80048; 36415; 83735; 85610; 80076; 84484; 83880; 96375; 96374; 99284; J0360; J2765; J1200 ×2; J1100; J7040; Q0163

== ENCOUNTER 2022-01-28 22:17 | Emergency (ER) | payer BC ==
--- NOTE | 2022-01-28 23:23 | EDPHYS ---
Physician Documentation [facility] Name: Anjali Jones Age: 56 yrs Sex: Female : 1965 Arrival Date: 01/28/2022 Time: 22:21 Bed 14 Private MD: ED Physician Conrad Ugalde HPI: 01/28 23:16 This 56 yrs old Female presents to ER via Ambulatory with complaints of High Blood rn Pressure. 23:16 The patient has elevated blood pressure and discovered this at home. Onset: The rn symptoms/episode began/occurred this morning. Modifying factors:. Severity of symptoms: At its worst the blood pressure was moderate, in the emergency department the blood pressure is improved. The patient has experienced similar episodes in the past. The patient has been recently seen at the [facility] Emergency Department, today. Pt reports seen earlier today for high BP, went home, was high again, took hydralazine and now has improved. Has anxiety and gets anxious when BP gets elevated. Recently cleared by cardiology with neg stress test. Reports used to take hydralazine tid, now only as needed, has IgA nephropathy. Currently no chest pain/sob/headache/focal neuro complaint. . Historical: - Allergies: 22:27 No Known Allergies; hb - PMHx: 22:27 Hypertensive disorder; Sleep Apnea; Stage 3 Kidney Disease; hb - PSHx: 22:27 Cholecystectomy; Shoulder; Total abdominal hysterectomy; hb - Immunization history:: Adult Immunizations up to date. - Social history:: Smoking status: Patient denies any tobacco usage or history of. - Family history:: not pertinent. - Hospitalizations: : No recent hospitalization is reported. ROS: 23:16 Constitutional: Negative for fever, chills, and weight loss, Eyes: Negative for injury, rn pain, redness, and discharge, Neck: Negative for injury, pain, and swelling, Cardiovascular: Negative for chest pain, palpitations, and edema, Respiratory: Negative for shortness of breath, cough, wheezing, and pleuritic chest pain, Abdomen/GI: Negative for abdominal pain, nausea, vomiting, diarrhea, and constipation, Back: Negative for injury and pain, MS/Extremity: Negative for injury and deformity, Skin: Negative for injury, rash, and discoloration, Neuro: Negative for headache, weakness, numbness, tingling, and seizure. Exam: 23:16 Constitutional: This is a well developed, well nourished patient who is awake, alert, rn and in no acute distress. Head/Face: Normocephalic, atraumatic. Cardiovascular: Regular rate and rhythm. No pulse deficits. Respiratory: No increased work of breathing, no retractions or nasal flaring. Abdomen/GI: Soft, non-tender Skin: Warm, dry MS/ Extremity: Pulses equal, no cyanosis. Neuro: Awake and alert, GCS 15, oriented to person, place, time, and situation. Cranial nerves II-XII grossly intact. Motor strength 5/5 in all extremities. Sensory grossly intact. Cerebellar exam normal. 01/29 01:21 ECG was reviewed by the Attending Physician. rn Vital Signs: 01/28 22:25 BP 167 / 89; Pulse 98; Resp 20; Temp 97.1; Pulse Ox 98% on R/A; Pain 0/10; hb MDM: 22:30 Patient medically screened. rn 23:16 Differential diagnosis: Malignant HTN. Data reviewed: vital signs, nurses notes, old rn medical records, EKG, and as a result, I will discharge patient. Counseling: I had a detailed discussion with the patient and/or guardian regarding: the historical points, exam findings, and any diagnostic results supporting the discharge/admit diagnosis, the need for outpatient follow up, to return to the emergency department if symptoms worsen or persist or if there are any questions or concerns that arise at home. Special discussion: I discussed with the patient/guardian in detail that at this point there is no indication for admission to the hospital. It is understood, however, that if the symptoms persist or worsen the patient needs to return immediately for re-evaluation. Based on the history and exam findings, there is no indication for further emergent testing or inpatient evaluation. I discussed with the patient/guardian the need to see the primary care provider for further evaluation of the symptoms. Tongue Lining Stitcher. ED course: Had long discussion with patient regarding blood pressure management and expectations, repeat ecg normal, normal neuro exam, recommend dc home with return precautions and nephrology f/u as used to be on scheduled bp meds and now just as needed, likely needs scheduled meds again and her customer service specialist took her off of them.. 01/28 22:39 Order name: EKG; Complete Time: 22:40 rn 01/28 22:39 Order name: EKG - Nurse/Tech; Complete Time: 22:55 rn EC/20 01:21 Rate is 89 beats/min. Rhythm is regular. QRS [place] is Normal. AL interval is normal. QRS rn interval is normal. QT interval is normal. No Q waves. T waves are Normal. No ST changes noted. Clinical impression: Normal ECG. Interpreted by me. Reviewed by me. Administered Medications: No medications were administered Disposition Summary: 01/28/22 23:22 Discharge Ordered Location: Home rn Problem: an ongoing problem rn Symptoms: have improved rn Condition: Stable rn Diagnosis - Essential (primary) hypertension rn Followup: rn - With: Private Physician - When: As needed - Reason: Recheck today's complaints, Re-evaluation by your physician Discharge Instructions: - Discharge Summary Sheet rn - Hypertension, Adult rn - How to Take Your Blood Pressure, [id number] rn - Managing Your Hypertension rn Forms: - Medication Reconciliation Form rn - Thank You Letter rn - Antibiotic employee communications intern - Prescription Opioid Use rn Signatures: Conrad Ugalde MD MD rn Baxter, Heather, RN RN
--- NOTE | 2022-01-28 23:23 | ER ---
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 Seen in ED earlier today for same s/s. Coronavirus screen: At this time, the client does not indicate any symptoms associated with coronavirus-19. Ebola Screen: No symptoms or risks identified at this time. Initial Sepsis Screen: Does the patient meet any 2 criteria? No. Patient's initial sepsis screen is negative. Does the patient have a suspected source of infection? No. Patient's initial sepsis screen is negative. Risk Assessment: Do you want to hurt yourself or someone else? Patient reports no desire to harm self or others. Onset of symptoms was January 28, 2022. 22:25 Method Of Arrival: Ambulatory hb 22:25 Acuity: TODD 3 hb Triage Assessment: 22:28 General: Appears in no apparent distress. Behavior is calm, cooperative. Pain: Denies hb pain. Neuro: Level of Consciousness is awake, alert, obeys commands, Oriented to person, place, time, situation. Cardiovascular: Patient's skin is warm and dry. Respiratory: Respiratory effort is even, unlabored, Respiratory pattern is regular, symmetrical. Historical: - Allergies: 22:27 No Known Allergies; hb - PMHx: 22:27 Hypertensive disorder; Sleep Apnea; Stage 3 Kidney Disease; hb - PSHx: 22:27 Cholecystectomy; Shoulder; Total abdominal hysterectomy; hb - Immunization history:: Adult Immunizations up to date. - Social history:: Smoking status: Patient denies any tobacco usage or history of. - Family history:: not pertinent. - Hospitalizations: : No recent hospitalization is reported. Screenin:31 Abuse screen: Denies threats or abuse. Denies injuries from another. Nutritional ld1 screening: No deficits noted. Tuberculosis screening: No symptoms or risk factors identified. Fall Risk None identified. Assessment: 23:31 Reassessment: Patient appears in no apparent distress at this time. See triage ld1 assessment. 23:32 Pain: Pain does not radiate. Pain began suddenly. ld1 Vital Signs: 22:25 BP 167 / 89; Pulse 98; Resp 20; Temp 97.1; Pulse Ox 98% on R/A; Pain 0/10; hb ED Course: 22:21 Patient arrived in ED. ja2 22:27 Triage completed. hb 22:27 Arm band placed on. hb 22:30 Conrad Ugalde MD is Attending Physician. rn 22:46 Catrina Pandey, MALENA is Primary Nurse. ld1 23:31 Patient has correct armband on for positive identification. Placed in gown. Bed in low ld1 position. Call light in reach. Side rails up X2. shelter monitor on. Pulse ox on. NIBP on. Door closed. Noise minimized. Warm blanket given. 23:31 No provider procedures requiring assistance completed. Patient did not have IV access ld1 during this emergency room visit. Patient maintains SpO2 saturation greater than 95% on room air. Administered Medications: No medications were administered Medication: 23:31 VIS not applicable for this client. ld1 Outcome: 23:22 Discharge ordered by . rn 23:31 Discharged to home ambulatory. ld1 23:31 Condition: stable 23:31 Discharge instructions given to patient, Instructed on discharge instructions, follow up and referral plans. Demonstrated understanding of instructions, follow-up care. 23:33 Patient left the ED. ld1 Signatures: Conrad Ugalde MD MD rn Baxter, Heather, RN RN Catrina Pandey RN RN 1 [place] Mina [facility] Corrections: (The following items were deleted from the chart) 22:30 22:25 Chief complaint: Chest tightness and SOB x 1 hour, home BP 193/101. Seen in ED hb earlier today for same s/s. Took Hydralazine 50 mg PO at 2100. hb
[2022-01-29] VITALS: BP 167/89; TEMP 97.1; O2SAT 98
--- NOTE | 2022-01-29 07:20 | EKG ---
Test Date: 2022-01-28 Test Time: 22:56:44 Internal Specialist: RAVI MEASUREMENT RESULTS: Intervals: Rate: 89 NE: 172 QRSD: 82 QT: 376 QTc: 457 [place]: P: 57 NE: 172 QRS: -3 T: 56 INTERPRETIVE STATEMENTS: Normal sinus rhythm Normal ECG No previous ECG available for comparison Electronically Signed On 01-29-22 07:20:23 CDT by Naif Davies
--- OUTSIDE RECORDS SUMMARY | 2022-01-30 14:56 | XMS REPORT | Continuity of Care Document ---
:[address] [facility] t Address [address] [place] [address] Dr. John [address] [place] [address] Care Team Providers Name Role Phone SITA [...] Date S ource BCBS PPO POS EPO [id number] 2017 00:00:00 [place] [id number] 2017 00:00:00 [place] ([place] Problems This patient [...] Department ID 2021-11-04 2021-11-04 Outpatient GILBERTO BUCKNER [facility] [id number] [place] 00:00:00 00:00:00 ROSELYN [address] 2021-09-11 2021-09-12 Outpatient EL [facility] [id number] [facility] 11:42:22 08:27:48 2021-09-11 2021-09-11 Outpatient SLEH [facility] [id number] [facility] 00:00:00 00:00:00 2021-09-11 2021-09-11 Outpatient EL [facility] [id number] [facility] 00:00:00 00:00:00 2021-09-10 2021-09-10 Outpatient EL [facility] [id number] [facility] 08:35:27 16:06:47 2021-08-14 2021-08-14 Outpatient EL [facility] [id number] [facility] 08:35:47 14:24:41 2021-08-13 2021-08-13 Outpatient EL [facility] [id number] [facility] 07:51:26 15:41:57 2021-07-16 2021-07-16 Outpatient EL [facility] [id number] [facility] 08:26:42 14:42:37 2021-07-15 2021-07-15 Outpatient EL [facility] [id number] [facility] 08:21:56 16:52:30 2021-06-18 2021-06-18 Outpatient EL [facility] [id number] [facility] 08:06:29 15:32:54 2021-06-17 2021-06-17 Outpatient EL [facility] [id number] [facility] 08:35:30 14:45:05 2021-05-21 2021-05-21 Outpatient EL [facility] [id number] [facility] 08:38:09 15:52:18 2021-05-20 2021-05-21 Outpatient EL [facility] [id number] [facility] 08:25:44 07:25:18 2021-04-23 2021-04-24 Outpatient EL [facility] [id number] [facility] 08:33:54 08:32:43 2021-04-22 2021-04-22 Outpatient EL [facility] [id number] [facility] 09:07:33 14:51:55 2021-04-18 2021-04-18 Outpatient LARY BUCKNERH [facility] [id number] [place] 00:00:00 00:00:00 ROSELYN 630 Method i 2021-03-25 2021-03-28 Inpatient KWESI [facility] [id number] [place] 00:00:00 00:00:00 ELIZABETH 684 Method i 2021-03-14 2021-03-14 Outpatient SITA [facility] [id number] [place] 00:00:00 00:00:00 ROSELYN 491 Method i 2020-12-31 2020-12-31 Outpatient Justine U U [id number] [place] 02:38:00 02:38:00 [id number] [facility] 2018-02-25 2018-02-25 Outpatient Syd MILLER [facility] [id number] [place] 08:19:00 13:00:00 [facility] Results Test [...] NOT 1092) ACCURATE CRE ATININE CLEARANCE IN CA EDICTING GLOMERULAR FILT RATION RATE. ESTIMATED GFR IS NOT APPLICABLE FOR DIALYSIS PATIENTS. CBC W/PLT COUNT & AUTO [id number] 10:31:06 Test Item Value Reference Range Interpretation [...] (BEAKER) (test code = 2801) COMPREHENSIVE METABOLIC [id number] 10:51:17 Test Item Value Reference Range Interpretation [...] PATIEN TS. CBC W/PLT COUNT & AUTO [id number] 10:41:36 Test Item Value Reference Range Interpretation [...] (BEAKER) (test code = 2801) COMPREHENSIVE METABOLIC [id number] 11:14:44 Test Item Value Reference Range Interpretation [...] PATIEN TS. CBC W/PLT COUNT & AUTO [id number] 10:57:44 Test Item Value Reference Range Interpretation [...] = 2801) CBC W/PLT COUNT & AUTO [id number] 12:41:43 Test Item Value Reference Range Interpretation [...] (BEAKER) (test code = 2801) COMPREHENSIVE METABOLIC [id number] 12:35:24 Test Item Value Reference Range Interpretation [...] APPLICABLE FOR DIALYSIS PATIEN TS. COMPREHENSIVE METABOLIC [id number] 11:39:42 Test Item Value Reference Range Interpretation [...] ESTIMATED GFR. CBC W/PLT COUNT & AUTO [id number] 11:35:19 Test Item Value Reference Range Interpretation [...] (BEAKER) (test code = 2801) COMPREHENSIVE METABOLIC [id number] 11:19:56 Test Item Value Reference Range Interpretation [...] ESTIMATED GFR. CBC W/PLT COUNT & AUTO [id number] 11:04:45 Test Item Value Reference Range Interpretation [...] in Respiratory specimen by ZEE with probe [id number] 22:08:57 Test Item Value Reference Range Interpretation Comments SARS-CoV-2 (COVID-19) RNA Not detected Not-Detected [Presence] in Respiratory specimen by ZEE with probe detection (test code = 15969-6) 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 (test code = 05153-7) Whether the patient has symptoms related to condition of interest (test code = 25369-8) Patient was hospitalized because of this condition (test code = 14830-6) Whether the patient was admitted to intensive care unit (ICU) for condition of interest (test code = 88020-7) Whether patient resides in a congregate care setting (test code = 47631-3) GLUCOMETER GLUCOSE- LAB USE [id number] 13:05:00 Test Item Value Reference Range Interpretation Comments GLUCOMETER (test code = GMG) 135 mg/dL 70-100 H GLUCOMETER GLUCOSE- LAB USE [id number] 13:05:00 Test Item Value Reference Range Interpretation Comments GLUCOMETER (test code = GMG) 107 mg/dL 70-100 H
== END 2022-01-28 23:33 | disposition home or self-care (01) ==
LOC: ER 22:17
DX: I12.9 Hypertensive chronic kidney disease with stage 1 through stage 4 chronic kidney disease, or unspecified chronic kidney disease (principal)
CPT/HCPCS: 93005; 99284

== ENCOUNTER 2022-02-01 08:25 | Emergency (ER) | payer BC ==
--- OUTSIDE RECORDS SUMMARY | 2022-02-01 08:29 | XMS REPORT | Continuity of Care Document ---
:1965 Author Organization [facility] t Address [address] [place] [address] Dr. John [address] [place] [address] Care Team Providers Name Role Phone SITA [...] Date S ource BCBS PPO POS EPO [id number] 2017 00:00:00 [place] [id number] 2017 00:00:00 [place] ([place] Problems This patient [...] Department ID 2021-11-04 2021-11-04 Outpatient GILBERTO BUCKNER [facility] [id number] [place] 00:00:00 00:00:00 ROSELYN [address] 2021-09-11 2021-09-12 Outpatient EL SLEH [facility] [id number] [facility] 11:42:22 08:27:48 2021-09-11 2021-09-11 Outpatient SLEH SLEH [id number] [facility] 00:00:00 00:00:00 2021-09-11 2021-09-11 Outpatient EL [facility] [id number] [facility] 00:00:00 00:00:00 2021-09-10 2021-09-10 Outpatient EL SLEH [facility] [id number] [facility] 08:35:27 16:06:47 2021-08-14 2021-08-14 Outpatient EL SLEH [facility] [id number] [facility]H 08:35:47 14:24:41 2021-08-13 2021-08-13 Outpatient EL SLEH [facility]H [id number] [facility]H 07:51:26 15:41:57 2021-07-16 2021-07-16 Outpatient EL SLEH [facility] [id number] [facility] 08:26:42 14:42:37 2021-07-15 2021-07-15 Outpatient EL SLEH [facility]H [id number] [facility]H 08:21:56 16:52:30 2021-06-18 2021-06-18 Outpatient EL SLEH [facility] [id number] [facility] 08:06:29 15:32:54 2021-06-17 2021-06-17 Outpatient EL SLEH [facility] [id number] [facility] 08:35:30 14:45:05 2021-05-21 2021-05-21 Outpatient EL SLEH [facility]H [id number] [facility] 08:38:09 15:52:18 2021-05-20 2021-05-21 Outpatient EL SLEH [facility]H [id number] [facility] 08:25:44 07:25:18 2021-04-23 2021-04-24 Outpatient EL SLEH [facility] [id number] [facility]H 08:33:54 08:32:43 2021-04-22 2021-04-22 Outpatient EL SLEH [facility] [id number] [facility] 09:07:33 14:51:55 2021-04-18 2021-04-18 Outpatient LARY BUCKNERH [facility] [id number] [place] 00:00:00 00:00:00 ROSELYN 630 Method i 2021-03-25 2021-03-28 Inpatient KWESI [facility] [id number] [place] 00:00:00 00:00:00 ELIZABETH 684 Method i 2021-03-14 2021-03-14 Outpatient SITA [facility] [id number] [place] 00:00:00 00:00:00 ROSELYN 491 Method i 2020-12-31 2020-12-31 Outpatient Justine U U [id number] [place] 02:38:00 02:38:00 [id number] [facility] 2018-02-25 2018-02-25 Outpatient Syd MILLER [facility] [id number] [place] 08:19:00 13:00:00 [facility] Results Test [...] NOT 1092) ACCURATE CRE ATININE CLEARANCE IN IN EDICTING GLOMERULAR FILT RATION RATE. ESTIMATED GFR IS NOT APPLICABLE FOR DIALYSIS PATIENTS. CBC W/PLT COUNT & AUTO [id number] 10:31:06 Test Item Value Reference Range Interpretation [...] (BEAKER) (test code = 2801) COMPREHENSIVE METABOLIC [id number] 10:51:17 Test Item Value Reference Range Interpretation [...] PATIEN TS. CBC W/PLT COUNT & AUTO [id number] 10:41:36 Test Item Value Reference Range Interpretation [...] (BEAKER) (test code = 2801) COMPREHENSIVE METABOLIC [id number] 11:14:44 Test Item Value Reference Range Interpretation [...] PATIEN TS. CBC W/PLT COUNT & AUTO [id number] 10:57:44 Test Item Value Reference Range Interpretation [...] = 2801) CBC W/PLT COUNT & AUTO [id number] 12:41:43 Test Item Value Reference Range Interpretation [...] (BEAKER) (test code = 2801) COMPREHENSIVE METABOLIC [id number] 12:35:24 Test Item Value Reference Range Interpretation [...] APPLICABLE FOR DIALYSIS PATIEN TS. COMPREHENSIVE METABOLIC [id number] 11:39:42 Test Item Value Reference Range Interpretation [...] ESTIMATED GFR. CBC W/PLT COUNT & AUTO [id number] 11:35:19 Test Item Value Reference Range Interpretation [...] (BEAKER) (test code = 2801) COMPREHENSIVE METABOLIC [id number] 11:19:56 Test Item Value Reference Range Interpretation [...] ESTIMATED GFR. CBC W/PLT COUNT & AUTO [id number] 11:04:45 Test Item Value Reference Range Interpretation [...] in Respiratory specimen by ZEE with probe [id number] 22:08:57 Test Item Value Reference Range Interpretation Comments SARS-CoV-2 (COVID-19) RNA Not detected Not-Detected [Presence] in Respiratory specimen by ZEE with probe detection (test code = 42105-4) 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 (test code = 60825-0) Whether the patient has symptoms related to condition of interest (test code = 20823-0) Patient was hospitalized because of this condition (test code = 96508-3) Whether the patient was admitted to intensive care unit (ICU) for condition of interest (test code = 06926-6) Whether patient resides in a congregate care setting (test code = 42640-8) GLUCOMETER GLUCOSE- LAB USE [id number] 13:05:00 Test Item Value Reference Range Interpretation Comments GLUCOMETER (test code = GMG) 135 mg/dL 70-100 H GLUCOMETER GLUCOSE- LAB USE [id number] 13:05:00 Test Item Value Reference Range Interpretation Comments GLUCOMETER (test code = GMG) 107 mg/dL 70-100 H
[2022-02-01] MEDS ORDERED: LORazepam 2 MG/ML VIAL ONE (09:03)
[2022-02-01 09:15] LABS: Absolute Lymphocytes (CBC) 1.6 K/uL (0.7-4.9); Hematocrit 36.7 % (36.0-45.0); Lymphocytes % 17.5 % (15.3-44.8); MPV 9.1 fL (7.6-11.3); RBC Red Blood Cell Count 4.27 M/uL (3.86-4.86)
[2022-02-01 09:29] LABS: Albumin 3.2 g/dL (3.4-5.0); Bilirubin Direct 0.1 mg/dL (0-0.2); Bilirubin Total 0.3 mg/dL (0.2-1.0); Potassium 3.4 mmol/L (3.5-5.1); Protein, Total 7.1 g/dL (6.4-8.2); Troponin High Sensitivity 8.4 pg/mL (<58.9)
--- NOTE | 2022-02-01 09:31 | RAD REPORT ---
EXAM DESCRIPTION: CT - Head Brain Wo Cont - 02/01/2022 9:08 am CLINICAL HISTORY: headache, htn COMPARISON: No comparisons TECHNIQUE: All CT scans are performed using dose optimization technique as appropriate and may inclu de automated exposure control or mA/KV adjustment according to patient size. FINDINGS: No intracranial hemorrhage, hydrocephalus or extra-axial fluid collection.No areas of brai n edema or evidence of midline shift. The paranasal sinuses and mastoids are clear. The calvarium is intact. IMPRESSION: No acute intracranial abnormality.
--- NOTE | 2022-02-01 09:33 | RAD REPORT ---
EXAM DESCRIPTION: RAD - Chest Single View - 02/01/2022 9:04 am CLINICAL HISTORY: CHEST PAIN COMPARISON: No comparisons FINDINGS: Lines: None. Lungs: No evidence of edema or pneumonia. Pleural: No significant pleural effusions or pneumothorax. Cardiac: The heart size is within normal limits. Bones: No acute fractures. Other: IMPRESSION: No acute cardiopulmonary disease.
[2022-02-01] MEDS ORDERED: ASPIRIN 81 MG CHEWABLE TABLET ONE (09:57)
[2022-02-01] MEDS ORDERED: POTASSIUM 25 MEQ EFFERV TAB ONE (09:58)
[2022-02-01] MEDS ORDERED: NA CHLORIDE 0.9% 500 ML ONE (09:59)
[2022-02-01 10:54] LABS: Urine Blood Trace-intact (Negative); Urine Glucose Negative (Negative); Urine Protein 3+ (Negative); Urine Specific Gravity 1.025 (1.005-1.030)
[2022-02-01 11:12] LABS: Urine Bacteria 20-50 /HPF (<20); Urine RBC <5 /HPF (None Seen)
[2022-02-01 11:13] LABS: Urine Mucus 1+ /HPF (None Seen)
--- NOTE | 2022-02-01 14:04 | ER ---
Nurse's Notes [facility] Name: Anjali Jones Age: 56 yrs Sex: Female : 1965 Arrival Date: 02/01/2022 Time: 08:27 Bed 4 Private MD: Grant Franklin Diagnosis: Hypertensive heart and chronic kidney disease without heart failure, with stage 1 through stage 4 chronic kidney disease, or unspecified chronic kidney disease;Anxiety disorder, unspecified;Chest pain, unspecified Presentation: 02/01 08:33 Chief complaint: Patient states: for about a week has been having HBP; took BP about 20 vg1 minutes ago and read 201/106; states chest tightness, SOB, Left and numbness, headache and nausea. Also stated, "my blood pressure is scaring me and I think it may also have to do with my anxiety, but my doctor told me not to worry about it unless it goes over 200". Coronavirus screen: Vaccine status: Patient reports receiving the 2nd dose of the covid vaccine. Client denies travel out of the [place] in the last 14 days. Ebola Screen: Patient denies exposure to infectious person. Patient denies travel to an Ebola-affected area in the 21 days before illness onset. Initial Sepsis Screen: Does the patient meet any 2 criteria? No. Patient's initial sepsis screen is negative. Does the patient have a suspected source of infection? No. Patient's initial sepsis screen is negative. Risk Assessment: Do you want to hurt yourself or someone else? Patient reports no desire to harm self or others. Onset of symptoms was January 25, 2022. 08:33 Method Of Arrival: Ambulatory vg1 08:33 Acuity: TODD 2 vg1 Triage Assessment: 08:35 General: Appears uncomfortable, Behavior is cooperative, anxious, crying. Pain: vg1 Complains of pain in chest Pain does not radiate. Pain currently is 4 out of 10 on a pain scale. Pain began x 1 week. Neuro: Level of Consciousness is awake, alert, obeys commands, Oriented to person, place, time, situation. Cardiovascular: Patient's skin is warm and dry. Respiratory: Reports shortness of breath on exertion Airway is patent Respiratory effort is even, unlabored. GI: Reports nausea. Historical: - Allergies: 08:35 No Known Allergies; vg1 - Home Meds: 08:35 levothyroxine oral [Active]; sertraline oral [Active]; Hydralazine Oral [Active]; vg1 torsemide oral [Active]; Zolpidem Tartrate Oral [Active]; olmesartan oral [Active]; nebivolol oral [Active]; Dexilant oral [Active]; - PMHx: 08:35 Hypertensive disorder; Sleep Apnea; Stage 3 Kidney Disease; vg1 - PSHx: 08:35 Cholecystectomy; Shoulder; Total abdominal hysterectomy; vg1 - Immunization history:: Client reports receiving the 2nd dose of the Covid vaccine. - Social history:: Smoking status: Patient denies any tobacco usage or history of. Screenin:12 Abuse screen: Denies threats or abuse. Nutritional screening: No deficits noted. em6 Tuberculosis screening: No symptoms or risk factors identified. Fall Risk No fall in past 12 months (0 pts). No secondary diagnosis (0 pts). IV access (20 points). Ambulatory Aid- None/Bed Rest/Nurse Assist (0 pts). Gait- Normal/Bed Rest/Wheelchair (0 pts) Mental Status- Oriented to own ability (0 pts). Total Jalloh Fall Scale indicates No Risk (0-24 pts). Assessment: 09:02 General: Appears in no apparent distress. comfortable, Behavior is cooperative, em6 anxious. Pain: Complains of pain in chest and left shoulder Pain does not radiate. Quality of pain is described as pressure. Neuro: Fernandez Agitation-Sedation Scale (RASS): +1 Restless Level of Consciousness is awake, alert, obeys commands, Oriented to person, place, time, situation, Moves all extremities. Reports dizziness, headache. Cardiovascular: Reports chest pain. Cardiovascular: Capillary refill < 3 seconds Rhythm is regular. Cardiovascular: Reports. Respiratory: Airway is patent Respiratory effort is even, unlabored, Respiratory pattern is regular, symmetrical. GI: No signs and/or symptoms were reported involving the gastrointestinal system. GI:. : No signs and/or symptoms were reported regarding the genitourinary system. EENT: No signs and/or symptoms were reported regarding the EENT system. Derm: No signs and/or symptoms reported regarding the dermatologic system. Musculoskeletal: No signs and/or symptoms reported regarding the musculoskeletal system. 10:47 Reassessment: No changes from previously documented assessment. Patient and/or family bp updated on plan of care and expected duration. Pain level reassessed. 12:04 Reassessment: Patient appears in no apparent distress at this time. Patient and/or em6 family updated on plan of care and expected duration. Pain level reassessed. Patient states feeling better. Patient states symptoms have improved. Reassessment: patient states not having chest pain. patient denies dizziness. 12:59 Reassessment: Patient appears in no apparent distress at this time. Patient and/or jd3 family updated on plan of care and expected duration. Pain level reassessed. Patient is alert, oriented x 3, equal unlabored respirations, skin warm/dry/pink. 14:13 Reassessment: PT DC HOME AMBULATORY WITH FAMILY, DX WITH ANXIETY. bp Vital Signs: 08:33 BP 206 / 105; Pulse 87; Resp 20; Temp 98.2; Pulse Ox 97% on R/A; Weight 141.52 kg; vg1 Height 5 ft. 8 in. (172.72 cm); Pain 4/10; 09:13 BP 161 / 83; Pulse 78; Resp 15; Pulse Ox 97% on R/A; em6 10:46 BP 178 / 88; Pulse 82; Resp 16; Pulse Ox 97% ; bp 12:00 BP 143 / 85; Pulse 72; Resp 14; Pulse Ox 98% on R/A; em6 12:59 BP 145 / 82; Pulse 61; Resp 16; Pulse Ox 100% on R/A; jd3 14:13 BP 127 / 77; Pulse 68; Resp 13; Pulse Ox 96% ; bp 08:33 Body Mass Index 47.44 (141.52 kg, 172.72 cm) vg1 ED Course: 08:27 Patient arrived in ED. mr 08:27 Grant Franklin is Private Physician. mr 08:32 [place] PA is PHCP. cp 08:32 Brittni Ryan is Attending Physician. cp 08:35 Triage completed. vg1 08:35 Arm band placed on. vg1 08:40 Ravi Chand, MALENA is Primary Nurse. jd3 09:06 XRAY Chest (1 view) In Process Unspecified. EDMS 09:10 CT Head Brain wo Cont In Process Unspecified. EDMS 09:10 Inserted saline lock: 20 gauge in left antecubital area, using aseptic technique. Blood em6 collected. 09:13 Patient has correct armband on for positive identification. Placed in gown. Bed in low em6 position. Call light in reach. Side rails up X2. Adult w/ patient. Client placed on continuous cardiac and pulse oximetry monitoring. NIBP monitoring applied. surveillance system monitor on. Pulse ox on. NIBP on. Warm blanket given. 11:05 Urine Microscopic Only Sent. jd3 12:45 Troponin High Sensitivity Sent. bp 14:13 No provider procedures requiring assistance completed. IV discontinued, intact, bp bleeding controlled, No redness/swelling at site. Pressure dressing applied. Administered Medications: 09:07 Drug: Ativan (LORazepam) 1 mg Route: IVP; Site: left antecubital; em6 14:15 Follow up: Response: No adverse reaction bp 10:05 Drug: Potassium Effervescent Tablet 25 mEq Route: PO; em6 11:07 Follow up: Response: No adverse reaction em6 10:05 Drug: NS 0.9% 500 ml Route: IV; Rate: 500 ml/hr; Site: left antecubital; em6 11:06 Follow up: Response: No adverse reaction; IV Status: Completed infusion; IV Intake: em6 500ml 10:06 Drug: Aspirin Chewable Tablet 324 mg Route: PO; em6 11:07 Follow up: Response: No adverse reaction em6 Medication: 09:14 VIS not applicable for this client. em6 Intake: 11:06 IV: 500ml; Total: 500ml. em6 Outcome: 14:04 Discharge ordered by MD. cp 14:13 Discharged to home ambulatory. bp 14:13 Condition: stable 14:13 Discharge instructions given to patient, Instructed on discharge instructions, follow up and referral plans. medication usage, Demonstrated understanding of instructions, follow-up care, medications, Prescriptions given X 1. 14:15 Patient left the ED. bp Signatures: Dispatcher [employer] JAVID PatinoTheresa Corey, Ravi Trejo cp, RN RN Newton Reilly RN RN Michelle Hood RN RN vg1 Roma Shook RN RN em6
--- NOTE | 2022-02-01 14:04 | EDPHYS ---
Physician Documentation [facility] Name: Anjali Jones Age: 56 yrs Sex: Female : 1965 Arrival Date: 02/01/2022 Time: 08:27 Bed 4 Private MD: Grant Franklin ED Physician Brittni Ryan HPI: 02/01 08:43 This 56 yrs old Female presents to ER via Ambulatory with complaints of High Blood cp Pressure. 08:43 The patient has elevated blood pressure and discovered this at home, with a home device.cp 08:43 Onset: The symptoms/episode began/occurred 1 week(s) ago. cp 08:43 Associated signs and symptoms: Pertinent positives: headache, nausea, chest pressure, cp numbness of left arm, Pertinent negatives: dizziness, visual changes, vomiting, weakness. 08:43 Severity of symptoms: in the emergency department the blood pressure is unchanged, cp despite home interventions. 08:43 Patient reports taking 50 mg hydralazine this morning. cp Historical: - Allergies: 08:35 No Known Allergies; vg1 - Home Meds: 08:35 levothyroxine oral [Active]; sertraline oral [Active]; Hydralazine Oral [Active]; vg1 torsemide oral [Active]; Zolpidem Tartrate Oral [Active]; olmesartan oral [Active]; nebivolol oral [Active]; Dexilant oral [Active]; - PMHx: 08:35 Hypertensive disorder; Sleep Apnea; Stage 3 Kidney Disease; vg1 - PSHx: 08:35 Cholecystectomy; Shoulder; Total abdominal hysterectomy; vg1 - Immunization history:: Client reports receiving the 2nd dose of the Covid vaccine. - Social history:: Smoking status: Patient denies any tobacco usage or history of. ROS: 08:45 Constitutional: Negative for body aches, chills, fever, poor PO intake. cp 08:45 Eyes: Negative for injury, pain, redness, and discharge. cp 08:45 ENT: Negative for drainage from ear(s), ear pain, sore throat, difficulty swallowing, difficulty handling secretions. 08:45 Cardiovascular: Positive for chest pain, Negative for edema, palpitations. 08:45 Respiratory: Positive for shortness of breath, at rest. Negative for cough, wheezing. 08:45 Abdomen/GI: Negative for abdominal pain, vomiting, diarrhea, constipation. 08:45 : Negative for urinary symptoms. 08:45 Neuro: Positive for numbness, of the left arm, Negative for altered mental status, weakness. 08:45 Psych: Positive for anxiety. 08:45 All other systems are negative. cp Exam: 08:50 ECG was reviewed by the Attending Physician. cp 08:52 Constitutional: The patient appears in no acute distress, alert, awake, cp non-diaphoretic, non-toxic, well developed, well nourished, anxious, obese. 08:52 Head/Face: Normocephalic, atraumatic. cp 08:52 Eyes: Periorbital structures: appear normal, Pupils: equal, round, and reactive to light and accomodation, Extraocular movements: intact throughout, Conjunctiva: normal, no exudate, no injection, Sclera: no appreciated abnormality, Lids and lashes: appear normal, bilaterally. 08:52 ENT: External ear(s): are unremarkable, Nose: is normal, Mouth: Lips: moist, Oral mucosa: pink and intact, moist, Posterior pharynx: Airway: no evidence of obstruction, patent. 08:52 Neck: ROM/movement: is normal, is supple, without pain, no range of motions limitations, no nuchal rigidity. 08:52 Chest/axilla: Inspection: normal, Palpation: is normal, no crepitus, no tenderness. 08:52 Cardiovascular: Rate: normal, Rhythm: regular, Edema: is not appreciated, JVD: is not cp appreciated. 08:52 Respiratory: the patient does not display signs of respiratory distress, Respirations: cp normal, no use of accessory muscles, no retractions, labored breathing, is not present, Breath sounds: are clear throughout, no decreased breath sounds, no stridor, no wheezing. 08:52 Abdomen/GI: Inspection: abdomen appears normal, Bowel sounds: active, all quadrants, Palpation: abdomen is soft and non-tender, in all quadrants. 08:52 Back: pain, is absent, ROM is normal. 08:52 Neuro: Orientation: to person, place \\T\\ time. Mentation: is normal, Cerebellar function: is grossly normal, Motor: moves all fours, strength is normal, Sensation: is normal, Gait: is steady, at a normal pace, without difficulty. 12:48 ECG was reviewed by the Attending Physician. Vital Signs: 08:33 BP 206 / 105; Pulse 87; Resp 20; Temp 98.2; Pulse Ox 97% on R/A; Weight 141.52 kg; vg1 Height 5 ft. 8 in. (172.72 cm); Pain 4/10; 09:13 BP 161 / 83; Pulse 78; Resp 15; Pulse Ox 97% on R/A; em6 10:46 BP 178 / 88; Pulse 82; Resp 16; Pulse Ox 97% ; bp 12:00 BP 143 / 85; Pulse 72; Resp 14; Pulse Ox 98% on R/A; em6 12:59 BP 145 / 82; Pulse 61; Resp 16; Pulse Ox 100% on R/A; jd3 14:13 BP 127 / 77; Pulse 68; Resp 13; Pulse Ox 96% ; bp 08:33 Body Mass Index 47.44 (141.52 kg, 172.72 cm) vg1 MDM: 08:43 Patient medically screened. 09:00 Differential diagnosis: hypertensive crisis, Malignant HTN, CVA, intracerebral cp hemorrhage. 09:39 Data reviewed: vital signs, nurses notes, lab test result(s), EKG, radiologic studies, cp CT scan, plain films. ED course: reevaluation: patient reports symptoms improved. Blood pressure now reading 169/89. Will continue to monitor. 14:14 Counseling: I had a detailed discussion with the patient and/or guardian regarding: the cp historical points, exam findings, and any diagnostic results supporting the discharge/admit diagnosis, the presence of at least one elevated blood pressure reading (>120/80) during this emergency department visit, lab results, radiology results, the need for outpatient follow up, a family practitioner, to return to the emergency department if symptoms worsen or persist or if there are any questions or concerns that arise at home. Response to treatment: the patient's symptoms have markedly improved after treatment, and as a result, I will discharge patient. 02/01 08:46 Order name: Basic Metabolic Panel; Complete Time: 09:35 02/01 09:36 Interpretation: Normal except: K 3.4; GLUC 154; BUN 25; CRE 1.46; GFR 42. 02/01 08:46 Order name: CBC with Diff; Complete Time: 09:35 cp 02/01 10:45 Interpretation: Reviewed. cp 02/01 08:46 Order name: LFT's; Complete Time: 09:35 cp 02/01 13:54 Interpretation: Normal except: ALB 3.2; GLOB 3.9; A/G 0.8. cp 02/01 08:46 Order name: Magnesium; Complete Time: 09:35 cp 02/01 08:46 Order name: NT PRO-BNP; Complete Time: 09:35 cp 02/01 08:46 Order name: PT-INR; Complete Time: 09:35 cp 02/01 08:46 Order name: Troponin HS; Complete Time: 09:35 cp 02/01 09:36 Interpretation: Reviewed. cp 02/01 08:46 Order name: XRAY Chest (1 view); Complete Time: 09:35 cp 02/01 08:46 Order name: Urine Microscopic Only; Complete Time: 11:59 cp 02/01 11:59 Interpretation: Normal except: UBACT 20-50; BYST Few. cp 02/01 08:47 Order name: CT Head Brain wo Cont; Complete Time: 09:35 cp 02/01 09:39 Order name: COVID-19 SARS RT PCR (Document "Date of Onset" if Symptomatic); Complete cp Time: 11:59 02/01 10:54 Order name: Urine Dipstick-Ancillary; Complete Time: 11:59 EDMS 02/01 11:59 Interpretation: Normal except: UBLD Trace-intact; UPROT 3+. cp 02/01 11:18 Order name: Urine Culture EDCT 02/01 12:38 Order name: Troponin High Sensitivity; Complete Time: 13:54 cp 02/01 13:54 Interpretation: Reviewed. 02/01 08:46 Order name: EKG; Complete Time: 08:47 cp 02/01 08:46 Order name: Cardiac monitoring; Complete Time: 08:53 cp 02/01 08:46 Order name: EKG - Nurse/Tech; Complete Time: 08:53 cp 02/01 08:46 Order name: IV Saline Lock; Complete Time: 09:12 cp 02/01 08:46 Order name: Labs collected and sent; Complete Time: 09:12 cp 02/01 08:46 Order name: O2 Per Protocol; Complete Time: 08:53 cp 02/01 08:46 Order name: O2 Sat Monitoring; Complete Time: 08:53 cp 02/01 08:46 Order name: Urine Dipstick-Ancillary (obtain specimen); Complete Time: 10:56 cp 02/01 12:38 Order name: EKG; Complete Time: 12:38 cp 02/01 12:38 Order name: EKG - Nurse/Tech; Complete Time: 12:49 cp EC:50 Rate is 74 beats/min. Rhythm is regular. OH interval is normal. QRS interval is normal. cp QT interval is normal. T waves are Inverted in lead aVR. Interpreted by me. Reviewed by me. 12:48 Rate is 73 beats/min. Rhythm is regular. OH interval is normal. QRS interval is normal. cp QT interval is normal. T waves are Inverted in lead aVR. Interpreted by me. Reviewed by me. Administered Medications: 09:07 Drug: Ativan (LORazepam) 1 mg Route: IVP; Site: left antecubital; em6 14:15 Follow up: Response: No adverse reaction bp 10:05 Drug: Potassium Effervescent Tablet 25 mEq Route: PO; em6 11:07 Follow up: Response: No adverse reaction em6 10:05 Drug: NS 0.9% 500 ml Route: IV; Rate: 500 ml/hr; Site: left antecubital; em6 11:06 Follow up: Response: No adverse reaction; IV Status: Completed infusion; IV Intake: em6 500ml 10:06 Drug: Aspirin Chewable Tablet 324 mg Route: PO; em6 11:07 Follow up: Response: No adverse reaction em6 Disposition: 02/02 07:45 STAFF ATTESTATION STATEMENT I was immediately available on-site in the Emergency sd2 Department for consultation in the care of the patient. Brittni Ryan MD. Disposition Summary: 02/01/22 14:04 Discharge Ordered Location: Home cp Problem: new cp Symptoms: have improved cp Condition: Stable cp Diagnosis - Hypertensive heart and chronic kidney disease without heart failure, with stage 1 cp through stage 4 chronic kidney disease, or unspecified chronic kidney disease - Anxiety disorder, unspecified cp - Chest pain, unspecified cp Followup: cp - With: Private Physician - When: 2 - 3 days - Reason: Recheck today's complaints Discharge Instructions: - Discharge Summary Sheet cp - Nonspecific Chest Pain, Adult cp - Aspirin and Your Heart cp - Generalized Anxiety Disorder, Adult cp - Managing Anxiety, Adult cp Forms: - Medication Reconciliation Form cp - Thank You Letter cp - Antibiotic Education cp - Prescription Opioid Use cp Prescriptions: - Ativan 1 mg Oral Tablet - take 1 tablet by ORAL route every 12 hours As needed; 10 tablet; Refills: 0, cp Product Selection Permitted Signatures: Dispatcher [employer] EDMS [place] PA PA cp Garcia, Victoria RN RN vg1 Brittni Ryan2 Roma Shook RN RN em6 Newton Croft RN bp Corrections: (The following items were deleted from the chart) 13:02/01 08:43 Associated signs and symptoms: Pertinent positives: chest pressure, cp Pertinent negatives: headache, visual changes, vomiting, weakness, cp 02/02 13:02/01 13:14 Counseling: I had a detailed discussion with the patient and/or guardian cp regarding: the historical points, exam findings, and any diagnostic results supporting the discharge/admit diagnosis, the presence of at least one elevated blood pressure reading (>120/80) during this emergency department visit, lab results, radiology results, the need for outpatient follow up, a family practitioner, to return to the emergency department if symptoms worsen or persist or if there are any questions or concerns that arise at home, cp 02/02 13:02/01 13:14 Response to treatment: the patient's symptoms have markedly improved after cp treatment, and as a result, I will discharge patient, cp
[2022-02-01 14:44] VITALS: TEMP 98.2
[2022-02-01 14:56] VITALS: BP 127/77; O2SAT 96
--- NOTE | 2022-02-02 06:22 | EKG ---
Test Date: 2022-02-01 Test Time: 12:43:09 Type Proof Reproducer: ANTONI MEASUREMENT RESULTS: Intervals: Rate: 73 MI: 182 QRSD: 82 QT: 414 QTc: 456 [place]: P: 67 MI: 182 QRS: 2 T: 53 INTERPRETIVE STATEMENTS: Normal sinus rhythm Cannot rule out Anterior infarct, age undetermined Abnormal ECG Compared to ECG 02/01/2022 08:44:39 Sinus arrhythmia no longer present Myocardial infarct finding still present Electronically Signed On 02-02-22 06:21:52 CDT by Naif Davies
--- NOTE | 2022-02-02 06:23 | EKG ---
Test Date: 2022-02-01 Test Time: 08:44:39 Edge Baster: ANTONI MEASUREMENT RESULTS: Intervals: Rate: 74 RI: 166 QRSD: 82 QT: 378 QTc: 419 [place]: P: 54 RI: 166 QRS: -4 T: 56 INTERPRETIVE STATEMENTS: Normal sinus rhythm with sinus arrhythmia Cannot rule out Anterior infarct, age undetermined Abnormal ECG Compared to ECG 01/28/2022 22:56:44 Myocardial infarct finding now present Electronically Signed On 02-02-22 06:21:54 CDT by Naif Davies
== END 2022-02-01 14:15 | disposition home or self-care (01) ==
LOC: ER 08:25
DX: R07.89 Other chest pain (principal); I12.9 Hypertensive chronic kidney disease with stage 1 through stage 4 chronic kidney disease, or unspecified chronic kidney disease; N18.4 Chronic kidney disease, stage 4 (severe); F41.9 Anxiety disorder, unspecified; I10 Essential (primary) hypertension; Z20.822 Contact with and (suspected) exposure to COVID-19
CPT/HCPCS: 96361; 93005 ×2; 87088; 85025; 87086; 80048; 36415; 83735; 85610; 80076; 84484 ×2; 83880; 70450; 71045; 96374; 99284; U0003; J7040; 81003; 81015

== ENCOUNTER 2024-10-04 13:08 | Emergency (ER) | payer BC ==
[2024-10-04] MEDS ORDERED: LORazepam 2 MG/ML VIAL ONE (13:42)
[2024-10-04] MEDS ORDERED: METHYLPREDNISOLONE 125 MG INJ ONE (13:42)
[2024-10-04] MEDS ORDERED: FAMOTIDINE 20 MG/2 ML VIAL IV ONE (13:42)
[2024-10-04 14:21] LABS: Absolute Basophils 0.1 K/uL (0-0.5); Absolute Eosinophils 0.3 K/uL (0-0.5); Absolute Lymphocytes (CBC) 1.2 K/uL (0.7-4.9); Absolute Monocytes 0.3 K/uL (0.1-1.3); Absolute Neutrophil 3.8 K/uL (1.8-8.0); Basophils % 1.2 % (0-1.3); Eosinophils % 5.3 % (0-4.4); Hematocrit 43.2 % (36.0-45.0); Hemoglobin 14.4 g/dL (12.0-15.0); Lymphocytes % 20.5 % (15.3-44.8); MCH 31.2 pg (27.0-35.0); MCHC 33.3 g/dL (32.0-36.0); MCV 93.7 fL (80-100); MPV 9.5 fL (7.6-11.3); Monocytes % 5.6 % (3.3-12.3); Neutrophils % 67.4 % (41.7-73.7); Nucleated Red Blood Cells % 0.2 % (0-0); Platelets 137 thou/uL (152-406); RBC Red Blood Cell Count 4.61 M/uL (3.86-4.86); Red Cell Distribution Width 15.7 % (12.1-15.2)
[2024-10-04 14:34] LABS: Troponin High Sensitivity 5.8 pg/mL (<58.9)
[2024-10-04 14:36] LABS: Magnesium 2.2 mg/dL (1.6-2.4)
[2024-10-04] MEDS ORDERED: ACETAMINOPHEN 500 MG TAB ONE (15:32)
--- NOTE | 2024-10-04 15:32 | RAD REPORT ---
EXAMINATION: ONE VIEW CHEST XR CLINICAL INDICATION: Female, 59 years old.,Chest pain;Dyspnea TECHNIQUE: Frontal chest projection is submitted. Examination is limited by patient positioning and t echnique. COMPARISON: 02/01/2022 FINDINGS: The lungs are well inflated and clear. No pneumothorax or sizable effusion. The heart is normal in s ize. Mediastinal contours are unremarkable. IMPRESSION: No acute intrathoracic abnormalities.
--- NOTE | 2024-10-04 16:40 | ER ---
Nurse's Notes [facility] Name: Anjali Jones Age: 59 yrs Sex: Female : 1965 Arrival Date: 10/04/2024 Time: 13:08 Bed 6 Private MD: Diagnosis: Chest pain, unspecified;Dyspnea Presentation: 10/04 13:19 Chief complaint: Patient states: took her hydralazine for the first time at 1130 today iw , shortly after she had an episode of chest tightness and SOB , it went away and now it came back , lasted about 10 minutes, starting to feel better. Coronavirus screen: At this time, the client does not indicate any symptoms associated with coronavirus-19. Initial Sepsis Screen: Does the patient meet any 2 criteria? No. Patient's initial sepsis screen is negative. Does the patient have a suspected source of infection? No. Patient's initial sepsis screen is negative. Risk Assessment: Do you want to hurt yourself or someone else? Patient reports no desire to harm self or others. 13:19 Method Of Arrival: Wheelchair 13:25 Ebola Screen: No symptoms or risks identified at this time. Onset of symptoms was September. 13:25 Acuity: TODD 3 iw Historical: - Allergies: 14:02 No Known Allergies; cm10 - PMHx: 13:20 Hypertensive disorder; Sleep Apnea; Stage 3 Kidney Disease; iw - PSHx: 13:20 Cholecystectomy; Shoulder; Total abdominal hysterectomy; iw - Immunization history:: Adult Immunizations up to date. - Infectious Disease History:: Denies. - Social history:: Smoking status: Patient denies any tobacco usage or history of. Screenin:01 [facility] ED Fall Risk Assessment (Adult) History of falling in the last 3 months, cm10 including since admission No falls in past 3 months (0 pts) Confusion or Disorientation No (0 pts) Intoxicated or Sedated No (0 pts) Impaired Gait No (0 pts) Mobility Assist Device Used No (0 pt) Altered Elimination No (0 pt) Score/Fall Risk Level 0 - 2 = Low Risk Oriented to surroundings, Maintained a safe environment, Hourly rounding (assess needs \T\ fall precautionary measures) done. 14:01 Abuse screen: Denies threats or abuse. Denies injuries from another. Nutritional cm10 screening: No deficits noted. Tuberculosis screening: No symptoms or risk factors identified. Assessment: 14:06 General: Appears in no apparent distress. comfortable, Behavior is anxious. Pain: cm10 Complains of pain in head Pain does not radiate. Pain currently is 3 out of 10 on a pain scale. Pain: Pain began suddenly. Neuro: No deficits noted. Neuro: Level of Consciousness is awake, alert, obeys commands, Oriented to person, place, time, situation, Appropriate for age. Cardiovascular: Chest pain is described as RESOLVED. Respiratory: No deficits noted. Airway is patent Respiratory effort is even, unlabored, Respiratory pattern is regular, symmetrical, Breath sounds are clear bilaterally. 14:54 Reassessment: Patient appears in no apparent distress at this time. Patient and/or cm10 family updated on plan of care and expected duration. Pain level reassessed. Patient is alert, oriented x 3, equal unlabored respirations, skin warm/dry/pink. Patient states feeling better. Patient states symptoms have improved. 16:19 Reassessment: Patient appears in no apparent distress at this time. Patient and/or jb4 family updated on plan of care and expected duration. Pain level reassessed. Patient is alert, oriented x 3, equal unlabored respirations, skin warm/dry/pink. Vital Signs: 14:00 BP 125 / 78; Pulse 80; Resp 18; Temp 98.1(O); Pulse Ox 97% ; Weight 149.69 kg; Height 5 cm10 ft. 8 in. ; Pain 0/10; 16:00 BP 141 / 73; Pulse 81; Resp 16; Pulse Ox 96% on R/A; jb4 16:56 BP 150 / 80; Pulse 77; Resp 18; Pulse Ox 95% ; cm10 14:00 Body Mass Index 50.18 (149.69 kg, 172.72 cm) cm10 14:00 Pain Scale: Adult cm10 ED Course: 13:15 Patient arrived in ED. la1 13:17 [facility] Mart[facility]C [facility] kb 13:17 Conrad Ugalde MD is Attending Physician. kb 13:25 Triage completed. iw 13:37 Maggie Shook, RN is Primary Nurse. cm10 14:00 Basic Metabolic Panel Sent. cm10 14:00 CBC with Diff Sent. cm10 14:00 Magnesium Sent. cm10 14:00 Troponin HS Sent. cm10 14:00 Initial lab(s) drawn, by me, sent to lab. EKG done, by ED staff, reviewed by Nasra HA. Inserted saline lock: 20 gauge in right antecubital area, using aseptic technique. Blood collected. Flushed with 10 mL NS. Patient maintains SpO2 saturation greater than 95% on room air. 14:05 Arm band placed on right wrist. Patient placed in an exam room, on a stretcher. cm10 14:06 Patient has correct armband on for positive identification. Bed in low position. Call cm10 light in reach. Side rails up X2. Client placed on continuous cardiac and pulse oximetry monitoring. NIBP monitoring applied. site monitor on. 15:05 XRAY Chest (1 view) In Process Unspecified. EDMS 16:56 No provider procedures requiring assistance completed. IV discontinued, intact, cm10 bleeding controlled, No redness/swelling at site. Pressure dressing applied. 16:57 Provided Education on: Follow-up instructions. cm10 Administered Medications: 13:23 CANCELLED (Duplicate Order): ativan0.5 mg IVP once frankie 13:55 Drug: Ativan IVP 1 mg IVP once Route: IVP; Site: right antecubital; cm10 14:54 Follow up: Response: No adverse reaction; Marked relief of symptoms cm10 14:01 Drug: MethylPrednisoLONE IVP 125 mg IVP once Route: IVP; Site: right antecubital; cm10 14:54 Follow up: Response: No adverse reaction; Marked relief of symptoms cm10 14:01 Drug: Famotidine IVP 20 mg IVP once; dilute with 10 mL 0.9% NaCl; give over 2 minutes cm10 Route: IVP; Site: right antecubital; 14:54 Follow up: Response: No adverse reaction; Marked relief of symptoms cm10 15:39 Drug: Acetaminophen PO 1000 mg PO once Route: PO; cm10 16:30 Follow up: Response: No adverse reaction cm10 Medication: 16:57 VIS not applicable for this client. cm10 Outcome: 16:39 Discharge ordered by MD. david 16:57 Discharged to home ambulatory, cm10 16:57 Condition: good 16:57 Discharge instructions given to patient, Instructed on discharge instructions, follow up and referral plans. Demonstrated understanding of instructions, follow-up care, 16:57 Patient left the ED. cm10 Signatures: Dispatcher [employer] Nasra Lazo, DILCIA NOGUERA-Pilob Deepthi Sanchez, Aung Velasco RN, FNP-C FNP-Onur Crowley, RN RN jb4 Maggie Shook RN RN cm10
--- NOTE | 2024-10-04 16:40 | EDPHYS ---
Physician Documentation [facility] Name: Anjali Jones Age: 59 yrs Sex: Female : 1965 Arrival Date: 10/04/2024 Time: 13:08 Bed 6 Private MD: ED Physician Conrad Ugalde HPI: 10/04 13:24 This 59 yrs old Female presents to ER via Wheelchair with complaints of Chest Tightness.kb 13:24 Pt is a 59 year old female who presents for chest tightness and shortness of breath kb that started at 1150 this morning, lasted about 10 minutes and resolved. States it came back about 20 minutes [place] ferry [place] so she decided to come in for evaluation. States she took hydralazine for the first time today at 1130. States the symptoms are starting to resolve at this time. . Historical: - Allergies: 14:02 No Known Allergies; cm10 - PMHx: 13:20 Hypertensive disorder; Sleep Apnea; Stage 3 Kidney Disease; iw - PSHx: 13:20 Cholecystectomy; Shoulder; Total abdominal hysterectomy; iw - Immunization history:: Adult Immunizations up to date. - Infectious Disease History:: Denies. - Social history:: Smoking status: Patient denies any tobacco usage or history of. ROS: 13:23 Constitutional: As per HPI kb Exam: 13:23 Head/Face: Normocephalic, atraumatic. ENT: Moist Mucous membranes Cardiovascular: kb Regular rate Respiratory: Respirations even and unlabored. No increased work of breathing. Talking in full sentences Skin: Warm, dry with normal turgor. Normal color. MS/ Extremity: Pulses equal, no cyanosis. Neurovascular intact. Full, normal range of motion. Neuro: Awake and alert, GCS 15, oriented to person, place, time, and situation. 13:23 Constitutional: The patient appears alert, awake, anxious, kb 13:48 ECG was reviewed by the Attending Physician. kb Vital Signs: 14:00 BP 125 / 78; Pulse 80; Resp 18; Temp 98.1(O); Pulse Ox 97% ; Weight 149.69 kg; Height 5 cm10 ft. 8 in. ; Pain 0/10; 16:00 BP 141 / 73; Pulse 81; Resp 16; Pulse Ox 96% on R/A; jb4 16:56 BP 150 / 80; Pulse 77; Resp 18; Pulse Ox 95% ; cm10 14:00 Body Mass Index 50.18 (149.69 kg, 172.72 cm) cm10 14:00 Pain Scale: Adult cm10 MDM: 13:17 Medical Screening Exam initiated kb 13:26 Data reviewed: vital signs, nurses notes. kb 16:35 Differential diagnosis: arrhythmia, acute mi, medication reaction. Counseling: I had a kb detailed discussion with the patient and/or guardian regarding the historical points, exam findings, and any diagnostic results supporting the discharge/admit diagnosis, lab results, radiology results, the need for outpatient follow up, a family practitioner, to return to the emergency department if symptoms worsen or persist or if there are any questions or concerns that arise at home. 16:38 Consideration of Admission/Observation Escalation of care including kb admission/observation considered. admission considered but serial troponin normal (second one decreased), ekg normal, pt has not had symptoms since she was placed in room. Will call to follow up with PCP tomorrow. HEART score 2. 10/04 13:22 Order name: Basic Metabolic Panel; Complete Time: 14:36 kb 10/04 13:22 Order name: CBC with Diff; Complete Time: 14:23 kb 10/04 13:22 Order name: Magnesium; Complete Time: 14:36 kb 10/04 13:22 Order name: Troponin HS; Complete Time: 14:36 kb 10/04 15:58 Order name: Troponin High Sensitivity; Complete Time: 16:34 kb 10/04 13:22 Order name: XRAY Chest (1 view); Complete Time: 15:36 kb 10/04 13:22 Order name: Cardiac monitoring; Complete Time: 14:00 kb 10/04 13:22 Order name: EKG - Nurse/Tech; Complete Time: 13:38 kb 10/04 13:22 Order name: IV Saline Lock; Complete Time: 14:00 kb 10/04 13:22 Order name: Labs collected and sent; Complete Time: 14:00 kb 10/04 13:22 Order name: O2 Per Protocol; Complete Time: 14:00 kb 10/04 13:22 Order name: O2 Sat Monitoring; Complete Time: 14:00 kb EC:48 Rate is 82 beats/min. Rhythm is regular. QRS [place] is Normal. CO interval is normal at kb 176 msec. QRS interval is normal at 84 msec. QT interval is normal at 443 msec. Administered Medications: 13:23 CANCELLED (Duplicate Order): ativan0.5 mg IVP once kb 13:55 Drug: Ativan IVP 1 mg IVP once Route: IVP; Site: right antecubital; cm10 14:54 Follow up: Response: No adverse reaction; Marked relief of symptoms cm10 14:01 Drug: MethylPrednisoLONE IVP 125 mg IVP once Route: IVP; Site: right antecubital; cm10 14:54 Follow up: Response: No adverse reaction; Marked relief of symptoms cm10 14:01 Drug: Famotidine IVP 20 mg IVP once; dilute with 10 mL 0.9% NaCl; give over 2 minutes cm10 Route: IVP; Site: right antecubital; 14:54 Follow up: Response: No adverse reaction; Marked relief of symptoms cm10 15:39 Drug: Acetaminophen PO 1000 mg PO once Route: PO; cm10 16:30 Follow up: Response: No adverse reaction cm10 Disposition: 17:36 Co-signature as Attending Physician, Conrad Ugalde MD I reviewed the patient's care rn provided by the Advanced Practice Provider and agree with the diagnosis and treatment plan. Disposition Summary: 10/04/24 16:39 Discharge Ordered Notes: Location: Home kb Condition: Stable kb Diagnosis - Chest pain, unspecified kb - Dyspnea kb Followup: kb - With: Emergency Department - When: As needed - Reason: Worsening of condition Followup: kb - With: Private Physician - When: 2 - 3 days - Reason: Recheck today's complaints, Continuance of care, Re-evaluation by your physician Discharge Instructions: - Discharge Summary Sheet kb - Nonspecific Chest Pain, Adult, [id number] kb Forms: - Medication Reconciliation Form kb - Antibiotic Education kb - Prescription Opioid Use kb - Patient Portal Instructions kb - Leadership Thank You Letter kb Signatures: Dispatcher [employer] EDNasra Dean FNP-Syd AGUAYOP-Deepthi Merino, Conrad Pedroza RN, MD MD rn Martinez, Clarissa, RN RN cm10 Corrections: (The following items were deleted from the chart) 13:22 13:22 BASIC METABOLIC PANEL+C.LAB.BRZ ordered. EDMS EDMS 13:22 13:22 CBC+H.LAB.BRZ ordered. EDMS EDMS 13:22 13:22 MAGNESIUM+C.LAB.BRZ ordered. EDMS EDMS 13: 13:22 Troponin High Sensitivity+C.LAB.BRZ ordered. EDMS EDMS 13: 13:22 Chest Single View+RAD.RAD.BRZ ordered. EDMS EDMS 13: 13:22 Ativan IVP 0.5 mg IVP once ordered. kb kb 13:24 13:23 Head/Face: Normocephalic, atraumatic. ENT: Moist Mucous membranes Cardiovascular: kb Regular rate Respiratory: Respirations even and unlabored. No increased work of breathing. Talking in full sentences Skin: Warm, dry with normal turgor. Normal color. MS/ Extremity: Pulses equal, no cyanosis. Neurovascular intact. Full, normal range of motion. Neuro: Awake and alert, GCS 15, oriented to person, place, time, and situation. kb
[2024-10-04 17:12] VITALS: TEMP 98.1
[2024-10-04 17:13] VITALS: BP 150/80; O2SAT 95
== END 2024-10-04 16:57 | disposition home or self-care (01) ==
LOC: ER 13:08
DX: R07.9 Chest pain, unspecified (principal); R06.00 Dyspnea, unspecified; I12.9 Hypertensive chronic kidney disease with stage 1 through stage 4 chronic kidney disease, or unspecified chronic kidney disease; N18.30 Chronic kidney disease, stage 3 unspecified
CPT/HCPCS: 85025; 80048; 36415; 83735; 84484 ×2; 71045; J2919; 93005